=== PATIENT | male | born 1965 | race Caucasian/White ===

== ENCOUNTER 2019-07-21 18:49 | Inpatient (IN) | payer OTHER ==
[2019-07-21] MEDS ORDERED: NA CHLORIDE 0.9% 1,000 ML ONE (19:00)
[2019-07-21 19:13] LABS: Absolute Lymphocytes (CBC) 3.2 K/uL (0.7-4.9); Hematocrit 45.1 % (39.6-49.0); MPV 8.2 fL (7.6-11.3); RBC Red Blood Cell Count 5.33 M/uL (4.33-5.43)
[2019-07-21 19:17] LABS: Protime INR 0.94
[2019-07-21] MEDS ORDERED: ONDANSETRON 4 MG/2 ML VIAL ONE (19:21)
[2019-07-21] MEDS ORDERED: MORPHINE 4 MG/ML SYR ONE ×2 (19:21→20:50)
[2019-07-21 19:32] LABS: ALT/SGPT 20 U/L (12-78); AST/SGOT 15 U/L (15-37); Albumin 3.9 g/dL (3.4-5.0); Alkaline Phosphatase 57 U/L (45-117); BUN Blood Urea Nitrogen 9 mg/dL (7-18); Bicarbonate 28 mmol/L (21-32); Bilirubin Direct 0.1 mg/dL (0-0.2); Bilirubin Total 0.6 mg/dL (0.2-1.0); Glucose Level 171 mg/dL (74-106); NT PRO-BNP 167 pg/mL (<125); Potassium 3.7 mmol/L (3.5-5.1); Protein, Total 7.2 g/dL (6.4-8.2); Sodium Level 140 mmol/L (136-145); Troponin (Emerg Dept Use Only) < 0.02 ng/mL (0.0-0.045)
--- NOTE | 2019-07-21 20:53 | RAD REPORT ---
EXAM DESCRIPTION: RAD - Chest Single View - 07/21/2019 8:10 pm CLINICAL HISTORY: Left-sided chest pain COMPARISON: April 2014 TECHNIQUE: AP portable chest image was obtained 1907 hour . FINDINGS: Lung volumes are low. Interstitial opacification and vascular engorgement are present. Hea rt size is normal. Trachea is midline. No measurable pleural effusion and no pneumothorax. No acute b roel abnormality seen. No acute aortic findings suspected. IMPRESSION: Mild CHF/volume overload pattern accentuated by shallow inspiration.
--- NOTE | 2019-07-21 22:28 | ER ---
Nurse's Notes [facility] Name: Ran Cummings Age: 54 yrs Sex: Male : 1965 Arrival Date: 07/21/2019 Time: 18:50 Bed 27 Private MD: Diagnosis: Acute coronary syndrome Presentation: 07/21 18:52 Presenting complaint: Patient states: chest pain radiating to left side, through to iw back to shoulder blades, started 30 minutes ago after a "stressful event" pain described as sharp, burning, 8/10, worse when taking deep breath or movement, hx of RI X 2. Transition of care: patient was not received from another setting of care. Onset of symptoms was July 21, 2019. Risk Assessment: Do you want to hurt yourself or someone else? Patient reports no desire to harm self or others. Initial Sepsis Screen: Does the patient meet any 2 criteria? No. Patient's initial sepsis screen is negative. Does the patient have a suspected source of infection? No. Patient's initial sepsis screen is negative. 18:52 Method Of Arrival: EMS: [facility] iw 18:52 Acuity: DASHA 2 iw 18:52 Care prior to arrival: Medication(s) given: ASA, 81 mg, x 4. iw Historical: - Allergies: 19:01 No Known Allergies; iw - Home Meds: 19:01 Metoprolol Tartrate Oral once daily [Active]; Plavix 75 mg Oral tab 1 tab once daily iw [Active]; aspirin 81 mg Oral TbEC 1 tab once daily [Active]; Toujeo SoloStar 300 unit/mL (1.5 mL) subcutaneous inpn daily [Active]; Levemir 100 unit/mL subcutaneous soln daily [Active]; - PMHx: 19:01 Myocardial infarction; Diabetes - NIDDM; Hypertension; iw - PSHx: 19:01 Heart stents; Appendectomy; Pilonidal cyst; Removal of benign cyst from eyebrow; CABG; iw aortic valve replacement; - Immunization history:: Adult Immunizations up to date. - Social history:: Smoking status: Patient/guardian denies using tobacco. - Ebola Screening: : Patient negative for fever greater than or equal to 101.5 degrees Fahrenheit, and additional compatible Ebola Virus Disease symptoms Patient denies exposure to infectious person Patient denies travel to an Ebola-affected area in the 21 days before illness onset No symptoms or risks identified at this time. Screenin:08 Abuse screen: Denies threats or abuse. Denies injuries from another. Nutritional rv screening: No deficits noted. Tuberculosis screening: No symptoms or risk factors identified. Fall Risk None identified. Assessment: 19:06 General: Appears in no apparent distress. uncomfortable, Behavior is calm, cooperative. rv Pain: Complains of pain in chest Pain radiates to back Quality of pain is described as burning, stabbing, Pain began suddenly. Neuro: Level of Consciousness is awake, alert, obeys commands, Oriented to person, place, time, situation. Cardiovascular: Rhythm is atrial flutter. Respiratory: Airway is patent. GI: No signs and/or symptoms were reported involving the gastrointestinal system. : No signs and/or symptoms were reported regarding the genitourinary system. EENT: No signs and/or symptoms were reported regarding the EENT system. Derm: Skin is intact. Musculoskeletal: No signs and/or symptoms reported regarding the musculoskeletal system. Vital Signs: 19:01 BP 174 / 100; Pulse 85; Resp 18 S; Temp 97.6; Pulse Ox 98% on R/A; Weight 102.97 kg; iw Height 5 ft. 9 in. (175.26 cm); Pain 8/10; 20:00 BP 123 / 78; Pulse 79; Resp 17; Pulse Ox 97% on R/A; rv 20:12 Pain 4/10; rv 21:00 BP 135 / 83; Pulse 80; Resp 16; Pulse Ox 97% on R/A; rv 22:00 BP 106 / 59; Pulse 67; Resp 16; Pulse Ox 97% on R/A; rv 23:00 BP 128 / 67; Pulse 67; Resp 15; Pulse Ox 97% on R/A; rv 19:01 Body Mass Index 33.52 (102.97 kg, 175.26 cm) iw ED Course: 18:50 Patient arrived in ED. rv 18:54 Triage completed. iw 18:55 Damon Haywood, RN is Primary Nurse. rv 19:01 Arm band placed on. iw 19:06 Inserted saline lock: 20 gauge in right antecubital area, using aseptic technique. rv Blood collected. Patient maintains SpO2 saturation greater than 95% on room air. 19:07 Patient has correct armband on for positive identification. Bed in low position. Call rv light in reach. Side rails up X 1. environmental monitoring specialist on. Pulse ox on. NIBP on. 19:14 Ashkan Haramn MD is Attending Physician. kdr 22:25 Betsy Livingston MD is Hospitalizing Provider. kdr 23:47 No provider procedures requiring assistance completed. Patient admitted, IV remains in rv place. Administered Medications: 19:40 Drug: morphine 4 mg {Note: rass 0.} Route: IVP; Site: right antecubital; rv 20:12 Follow up: Pain 4/10 Adult; Response: No adverse reaction; Marked relief of symptoms; rv Pain is decreased; RASS: Alert and Calm (0) 19:40 Drug: Zofran 4 mg Route: IVP; Site: right antecubital; rv 20:12 Follow up: Response: No adverse reaction rv 20:58 Drug: morphine 4 mg {Note: rass 0.} Route: IVP; Site: right antecubital; rv 22:40 Follow up: Response: No adverse reaction; Marked relief of symptoms; Pain is decreased; rv RASS: Alert and Calm (0) 23:01 Drug: morphine 4 mg Route: IVP; Site: right antecubital; rv 23:47 Follow up: Response: Medication administered at discharge. rv 23:26 Not Given (patient is already taken in the floor): Lasix 40 mg IVP once rv Outcome: 22:27 Decision to Hospitalize by Provider. kdr 23:47 Condition: good rv 23:48 Admitted to Med/surg accompanied by tech, via wheelchair, room 211, with chart, Report rv called to robert rn 23:48 Instructed on the need for admit. 23:55 Patient left the ED. rv Signatures: Ashkan Harman MD MD kdr Radha Dawson RN RN iw Damon Haywood RN RN rv Corrections: (The following items were deleted from the chart) 18:54 18:52 Care prior to arrival: None. iw iw 23:48 23:47 IV discontinued, intact, bleeding controlled, No redness/swelling at site. rv Pressure dressing applied, rv
--- NOTE | 2019-07-21 22:28 | EDPHYS ---
Physician Documentation [facility] Name: Ran Cummings Age: 54 yrs Sex: Male : 1965 Arrival Date: 07/21/2019 Time: 18:50 Bed 27 Private MD: ED Physician Ashkan Harman HPI: 07/21 19:47 This 54 yrs old Male presents to ER via EMS with complaints of Chest Pain. kdr 19:47 The patient or guardian reports chest pain that is located primarily in the substernal kdr area, anterior chest wall. Onset: suddenly, just prior to arrival, .75 hour(s) ago. The pain radiates to the left arm, back. Associated signs and symptoms: Pertinent positives: dizziness, lightheadedness, shortness of breath, Pertinent negatives: abdominal pain, cough, diaphoresis, vomiting. The chest pain is described as aching, sharp, stabbing. Duration: The patient or guardian reports a single episode, that is still ongoing, but improving. Modifying factors: The symptoms are alleviated by narcotic pain medication, Morphine. the symptoms are aggravated by breathing, cough, deep breath. Severity of pain: At its worst the pain was a 8 / 10 in the emergency department the pain is a 4 / 10 After receiving morphine. The patient has experienced similar episodes in the past, today's symptoms are similar, and the symptoms today are exactly the same. The patient has not recently seen a physician. Historical: - Allergies: 19:01 No Known Allergies; iw - Home Meds: 19:01 Metoprolol Tartrate Oral once daily [Active]; Plavix 75 mg Oral tab 1 tab once daily iw [Active]; aspirin 81 mg Oral TbEC 1 tab once daily [Active]; Toujeo SoloStar 300 unit/mL (1.5 mL) subcutaneous inpn daily [Active]; Levemir 100 unit/mL subcutaneous soln daily [Active]; - PMHx: 19:01 Myocardial infarction; Diabetes - NIDDM; Hypertension; iw - PSHx: 19:01 Heart stents; Appendectomy; Pilonidal cyst; Removal of benign cyst from eyebrow; CABG; iw aortic valve replacement; - Immunization history:: Adult Immunizations up to date. - Social history:: Smoking status: Patient/guardian denies using tobacco. - Ebola Screening: : Patient negative for fever greater than or equal to 101.5 degrees Fahrenheit, and additional compatible Ebola Virus Disease symptoms Patient denies exposure to infectious person Patient denies travel to an Ebola-affected area in the 21 days before illness onset No symptoms or risks identified at this time. ROS: 19:47 Constitutional: Negative for fever, chills, and weight loss, Eyes: Negative for injury, kdr pain, redness, and discharge, Neck: Negative for injury, pain, and swelling, Respiratory: Negative for shortness of breath, cough, wheezing, and pleuritic chest pain, Abdomen/GI: Negative for abdominal pain, nausea, vomiting, diarrhea, and constipation, Back: Negative for injury and pain, MS/Extremity: Negative for injury and deformity, Skin: Negative for injury, rash, and discoloration, Neuro: Negative for headache, weakness, numbness, tingling, and seizure activity. Psych: Negative for depression, anxiety, suicide ideation, homicidal ideation, and hallucinations, Allergy/Immunology: Negative for hives, rash, and allergies, Endocrine: Negative for neck swelling, polydipsia, polyuria, polyphagia, and marked weight changes, Hematologic/Lymphatic: Negative for swollen nodes, abnormal bleeding, and unusual bruising. 19:47 Cardiovascular: Positive for chest pain, Negative for chest pain. Exam: 19:47 Constitutional: This is a well developed, well nourished patient who is awake, alert, kdr and in no acute distress. Head/Face: Normocephalic, atraumatic. Eyes: Pupils equal round and reactive to light, extra-ocular motions intact. Lids and lashes normal. Conjunctiva and sclera are non-icteric and not injected. Cornea within normal limits. Periorbital areas with no swelling, redness, or edema. Neck: Trachea midline, no thyromegaly or masses palpated, and no cervical lymphadenopathy. Supple, full range of motion without nuchal rigidity, or vertebral point tenderness. No Meningismus. Chest/axilla: Normal chest wall appearance and motion. Nontender with no deformity. No lesions are appreciated. Cardiovascular: Regular rate and rhythm with a normal S1 and S2. No gallops, murmurs, or rubs. Normal PMI, no JVD. No pulse deficits. Respiratory: Lungs have equal breath sounds bilaterally, clear to auscultation and percussion. No rales, rhonchi or wheezes noted. No increased work of breathing, no retractions or nasal flaring. Abdomen/GI: Soft, non-tender, with normal bowel sounds. No distension or tympany. No guarding or rebound. No evidence of tenderness throughout. Back: No spinal tenderness. No costovertebral tenderness. Full range of motion. Skin: Warm, dry with normal turgor. Normal color with no rashes, no lesions, and no evidence of cellulitis. MS/ Extremity: Pulses equal, no cyanosis. Neurovascular intact. Full, normal range of motion. Neuro: Awake and alert, GCS 15, oriented to person, place, time, and situation. Cranial nerves II-XII grossly intact. Motor strength 5/5 in all extremities. Sensory grossly intact. Cerebellar exam normal. Normal gait. Psych: Awake, alert, with orientation to person, place and time. Behavior, mood, and affect are within normal limits. Vital Signs: 19:01 BP 174 / 100; Pulse 85; Resp 18 S; Temp 97.6; Pulse Ox 98% on R/A; Weight 102.97 kg; iw Height 5 ft. 9 in. (175.26 cm); Pain 8/10; 20:00 BP 123 / 78; Pulse 79; Resp 17; Pulse Ox 97% on R/A; rv 20:12 Pain 4/10; rv 21:00 BP 135 / 83; Pulse 80; Resp 16; Pulse Ox 97% on R/A; rv 22:00 BP 106 / 59; Pulse 67; Resp 16; Pulse Ox 97% on R/A; rv 23:00 BP 128 / 67; Pulse 67; Resp 15; Pulse Ox 97% on R/A; rv 19:01 Body Mass Index 33.52 (102.97 kg, 175.26 cm) iw MDM: 19:47 HEART Score: History: Highly Suspicious (2), ECG: Non specific repolarization kdr disturbance / LBTB / PM (1), Age: > 45 and < 65 years (1), Risk Factors: > or = 3 Risk factors for atherosclerotic disease (2), Troponin:. Data reviewed: vital signs. 22:27 Patient medically screened. kdr 07/21 18:56 Order name: Basic Metabolic Panel rv 07/21 18:56 Order name: CBC with Diff rv 07/21 18:56 Order name: LFT's rv 07/21 18:56 Order name: Magnesium rv 07/21 18:56 Order name: NT PRO-BNP rv 07/21 18:56 Order name: PT-INR rv 07/21 18:56 Order name: Troponin (emerg Dept Use Only) rv 07/21 19:14 Order name: Glucose, Ancillary Testing; Complete Time: 20:45 EDMS 07/21 19:14 Order name: CBC with Automated Diff; Complete Time: 20:45 EDMS 07/21 19:17 Order name: Protime (+INR); Complete Time: 20:45 EDMS 07/21 19:32 Order name: Basic Metabolic Panel; Complete Time: 20:45 EDMS 07/21 19:32 Order name: Liver (Hepatic) Function; Complete Time: 20:45 EDMS 07/21 19:32 Order name: Troponin (Emerg Dept Use Only); Complete Time: 20:45 EDMS 07/21 19:32 Order name: NT PRO-BNP; Complete Time: 20:45 EDMS 07/21 18:56 Order name: XRAY Chest (1 view) rv 07/21 18:56 Order name: EKG; Complete Time: 18:57 rv 07/21 19:32 Order name: Magnesium; Complete Time: 20:45 EDMS 07/21 21:33 Order name: RAD; Complete Time: 22:11 EDMS 07/21 22:41 Order name: Echo with Doppler EDMS 07/21 22:41 Order name: Lipid Profile EDND 07/21 22:41 Order name: Lipid Profile EDND 07/21 22:41 Order name: Troponin I EDND 07/21 22:41 Order name: Troponin I EDND 07/21 22:41 Order name: Troponin I EDND 07/21 23:38 Order name: Glucose, Ancillary Testing EDMS 07/21 18:56 Order name: Cardiac monitoring; Complete Time: 19:06 rv 07/21 18:56 Order name: EKG - Nurse/Tech; Complete Time: 19:06 rv 07/21 18:56 Order name: IV Saline Lock; Complete Time: 19:06 rv 07/21 18:56 Order name: Labs collected and sent; Complete Time: 19:06 rv 07/21 18:56 Order name: O2 Per Protocol; Complete Time: 19:06 rv 07/21 18:56 Order name: O2 Sat Monitoring; Complete Time: 19:06 rv 07/21 22:41 Order name: CONS Physician Consult EDMS 07/21 22:41 Order name: Heart Healthy EDMS 07/21 22:41 Order name: EKG Electrocardiogram EDMS 07/21 22:41 Order name: EKG Electrocardiogram EDMS Administered Medications: 19:40 Drug: morphine 4 mg {Note: rass 0.} Route: IVP; Site: right antecubital; rv 20:12 Follow up: Pain 4/10 Adult; Response: No adverse reaction; Marked relief of symptoms; rv Pain is decreased; RASS: Alert and Calm (0) 19:40 Drug: Zofran 4 mg Route: IVP; Site: right antecubital; rv 20:12 Follow up: Response: No adverse reaction rv 20:58 Drug: morphine 4 mg {Note: rass 0.} Route: IVP; Site: right antecubital; rv 22:40 Follow up: Response: No adverse reaction; Marked relief of symptoms; Pain is decreased; rv RASS: Alert and Calm (0) 23:01 Drug: morphine 4 mg Route: IVP; Site: right antecubital; rv 23:47 Follow up: Response: Medication administered at discharge. rv 23:26 Not Given (patient is already taken in the floor): Lasix 40 mg IVP once rv Disposition: 07/21/19 22:27 Hospitalization ordered by Betsy Livingston for Observation. Preliminary diagnosis is Acute coronary syndrome. - Bed requested for Telemetry/MedSurg (observation). - Status is Observation. rv - Condition is Fair. - Problem is an acute exacerbation. - Symptoms have improved. UTI on Admission? No Signatures: Dispatcher [employer] EDND Cira Galicia RN RN Ashkan Harman MD MD kdr Williams, Irene, RN RN iw Damon Haywood RN RN rv Corrections: (The following items were deleted from the chart) 22:42 22:27 Hospitalization Ordered by Betsy Livingston MD for Observation. Preliminary diagnosis is Acute coronary syndrome. Bed requested for Telemetry/MedSurg (observation). Status is Observation. Condition is Fair. Problem is an acute exacerbation. Symptoms have improved. UTI on Admission? No. kdr 23:55 22:42 07/21/2019 22:27 Hospitalization Ordered by Betsy Livingston MD for Observation. rv Preliminary diagnosis is Acute coronary syndrome. Bed requested for Telemetry/MedSurg (observation). Status is Observation. Condition is Fair. Problem is an acute exacerbation. Symptoms have improved. UTI on Admission? No. mw
[2019-07-21] MEDS ORDERED: MORPHINE 4 MG/ML SYR IV PRN (22:38)
[2019-07-21] MEDS ORDERED: ACETAMINOPHEN 500 MG TAB PO PRN (22:38)
[2019-07-22 00:18] VITALS: BMI 34.8
[2019-07-22] MEDS ORDERED: INFLUENZA VACCINE (for 3y+) 0.5 ML DOSE IMVAC ONE (00:28)
[2019-07-22] MEDS ORDERED: PNEUMOCOCCAL VACCINE 0.5 ML IMVAC ONE (00:28)
[2019-07-22 00:36] VITALS: O2SAT 97
[2019-07-22 03:25] LABS: Urine Appearance CLEAR; Urine Bilirubin NEGATIVE (NEG); Urine Blood NEGATIVE (NEG); Urine Color YELLOW; Urine Glucose NEGATIVE (NEG); Urine Protein TRACE (NEG); Urine Specific Gravity 1.015 (1.005-1.030); Urine Urobilinogen 0.2 mg/dL (0.2-1.0); Urine pH 5.5 (5.0-7.0)
[2019-07-22 03:35] LABS: Urine Microscopic Reflex ORDER UMIC
[2019-07-22 03:57] LABS: Urine Bacteria <20 /HPF (NONE SEEN); Urine Culture Reflex Order NOT NEEDED; Urine RBC <5 /HPF (NONE SEEN)
[2019-07-22 06:35] LABS: HDL Cholesterol 45 mg/dL (40-60); LDL Cholesterol, Calculated 114 (<130); Troponin I < 0.02 ng/mL (0.0-0.045)
--- NOTE | 2019-07-22 07:07 | P.HP ---
Certification for Inpatient Patient admitted to: Observation With expected LOS: <2 Midnights Patient will require the following post-hospital care: None Practitioner: I am a practitioner with admitting privileges, knowledge of patient current condition, hospital course, and medical plan of care. Services: Services provided to patient in accordance with Admission requirements found in Title 42 Section 412.3 of the Code of Federal Regulations Patient History Date of Service: 07/21/19 Reason for admission: Chest pain rule out acute coronary syndrome History of Present Illness: Patient is a 54-year-old gentleman who came into the hospital with chest discomfort. Pain was mainly in the sternal region. He has been coughing quite a bit lately because of his COPD. He has been having coughing & congestion. Patient has had a history of coronary artery disease, and he had a CABG performed in 2013. He had done well since that time has he stopped smoking, and he has been taking his medications regularly. He has had some chest discomfort with the last time happening in August 2018. He had chest pain which radiated to his left arm, and his arm became completely numb. He was supposed to get further testing, but he never followed up. He was working in the [employer] recently. But because of his heart disease he got disability, and he has retired since that time. He started having chest pain yesterday. Initially, he thought it was reflux. The chest pain would not go away, so he came to the hospital for further evaluation. Allergies gabapentin [From Neurontin] Allergy (Intermediate, Verified 07/21/19 23:26) redness Home Medications: Albuterol Sulfate [Proventil Hfa] 2 puff IH Q6HP PRN 04/23/14 Aspirin [Low Dose Aspirin EC] 81 mg PO DAILY 04/23/14 Nitroglycerin [Nitrostat*] 1 tab SL PRN PRN 04/23/14 Hydrocodone Bit/Acetaminophen [Hydrocodon-Acetaminophn 10-325] 1 tab PO TID PRN #90 tablet 04/24/14 Metoprolol Tartrate [Lopressor*] 50 mg PO BID #60 tab 04/24/14 Atorvastatin Calcium [Lipitor] 1 tab PO DAILY 07/21/19 Clopidogrel Bisulfate [Plavix*] 1 tab PO DAILY 07/21/19 Insulin Detemir [Levemir] 70 units SQ SEECOM 07/21/19 Insulin Glargine,Hum.rec.anlog [Toujeo Solostar] 30 units SQ SEECOM 07/21/19 Umeclidinium Brm/Vilanterol Tr [Anoro Ellipta 62.5-25 Mcg INH] 1 puff IH DAILY 07/21/19 clonazePAM [Klonopin*] 0.25 mg PO BID 07/21/19 Exenatide Microspheres [Bydureon Pen] 2 mg SQ SEECOM 07/22/19 - Past Medical/Surgical History Has patient received pneumonia vaccine in the past: Yes Diabetic: Yes -: CHF -: HTN -: CAD, 3 stents placed in 2011, Cardiology-Dr Pritchard -: DM Neuropathy -: COPD -: History of Tobacco abuse, Quit in 2012 -: Hyperlipidemia -: Cyst removal to face -: Appendectomy -: Coronary artery stent placement -: quadruple bypass 2013 -: Valve replacement 2013 Psychosocial/ Personal History: -27 years, Children-4, 6 grandkids, Retired box truck washer. - Family History Mother Medical History: Heart disease, Diabetes, Other (see notes) Notes: Heart failure - Social History Smoking Status: Former smoker Alcohol use: No CD- Drugs: No Caffeine use: Yes Place of Residence: Home Review of Systems 10-point ROS is otherwise unremarkable Physical Examination - Vital Signs Temperature: 97.0 F Blood Pressure: 113/63 Pulse: 73 Respirations: 18 Pulse Ox (%): 96 - Physical Exam General: Alert, In no apparent distress, Oriented x3 HEENT: Atraumatic, PERRLA, Mucous membr. moist/pink, EOMI, Sclerae nonicteric Neck: Supple, 2+ carotid pulse no bruit, No LAD, Without JVD or thyroid abnormality Respiratory: Clear to auscultation bilaterally, Normal air movement Cardiovascular: Regular rate/rhythm, Normal S1 S2, No murmurs Gastrointestinal: Normal bowel sounds, Soft and benign, Non-distended, No tenderness Musculoskeletal: No clubbing, No swelling, No tenderness Integumentary: No rashes Neurological: Normal gait, Normal speech, Normal strength at 5/5 x4 extr, Normal tone, Sensation intact, Cranial nerves 3-12 intact, Normal affect Lymphatics: No axilla or inguinal lymphadenopathy - Studies Laboratory Data (last 24 hrs) 07/21/19 19:00: PT 11.1, INR 0.94 07/21/19 19:00: WBC 8.7, Hgb 15.6, Hct 45.1, Plt Count 178 07/21/19 19:00: Sodium 140, Potassium 3.7, BUN 9, Creatinine 1.14, Glucose 171 H , Magnesium 2.0, Total Bilirubin 0.6, AST 15, ALT 20, Alkaline Phosphatase 57 Assessment & Plan - Problems (Diagnosis) (1) Chest pain, rule out acute myocardial infarction Current Visit: Yes Status: Acute (2) CAD (coronary artery disease) Current Visit: No Status: Chronic Qualifiers: Coronary Disease-Associated Artery/Lesion type: bypass graft (3) COPD (chronic obstructive pulmonary disease) Current Visit: No Status: Chronic Qualifiers: COPD type: chronic bronchitis (4) Depression with anxiety Current Visit: No Status: Chronic (5) Family history of acute congestive heart failure Current Visit: No Status: Chronic (6) History of tobacco use Current Visit: No Status: Chronic (7) Hyperlipidemia Current Visit: No Status: Chronic (8) Hypertension Current Visit: No Status: Chronic (9) Type II diabetes mellitus, uncontrolled Current Visit: No Status: Chronic - Plan 1. Serial troponins and EKG 2. Cardiology consultation 3. Echocardiogram and will discuss with Cardiology regarding stress test Tuesday AM 4. Anti-platelet therapy, anticoagulation, beta-alexandrea, and statin. Nitro and O2 as needed 5. IV morphine for pain 6. Strict blood pressure and blood sugar control 7. Will try to control his COPD as he is having frequent coughing and congestion 8. GI and DVT prophylaxis Discharge Plan: Home Plan to discharge in: 48 Hours - Advance Directives Does patient have a Living Will: Yes Does patient have a Durable POA for Healthcare: Yes - Code Status/Comfort Care Code Status Assessed: Yes Code Status: Full Code Critical Care: No Time Spent Managing PTS Care (In Minutes): 45
[2019-07-22] MEDS ORDERED: ALBUTEROL INHALER 60 PUFF/8 GM IH PRN (07:10)
[2019-07-22] MEDS ORDERED: NITROGLYCERIN 0.4 MG/TAB SL PRN (07:10)
[2019-07-22] MEDS ORDERED: HYDROCODONE/APAP 10/325 TAB PO PRN (07:10)
[2019-07-22] MEDS ORDERED: EXENATIDE MICROSPHERES 2 MG SQ SCH (07:15)
[2019-07-22] MEDS ORDERED: INSULIN GLARGINE HUM REC ANLOG 30 UNIT SQ SCH (07:15)
[2019-07-22] MEDS: INSULIN DETEMIR 70 UNIT SQ SCH (08:13)
[2019-07-22] MEDS: ASPIRIN EC 81 MG TAB PO SCH (08:16)
[2019-07-22] MEDS: CLOPIDOGREL 75 MG TABLET PO SCH (08:17)
[2019-07-22] MEDS: METOPROLOL TAR 50 MG TAB PO SCH ×2 (08:17→20:39)
[2019-07-22] MEDS: HYDROMORPHONE HCL 0.5 MG/0.5 ML INJ IV PRN ×3 (08:18→17:34)
[2019-07-22] MEDS: ATORVASTATIN 40 MG TAB PO SCH (08:30)
[2019-07-22] MEDS: clonazePAM 0.5 MG TAB PO SCH ×2 (08:31→20:39)
[2019-07-22] MEDS ORDERED: METOPROLOL TAR 50 MG TAB PO SCH (09:00)
[2019-07-22] MEDS ORDERED: HOME MED 1 EA UNK (Umeclidinium Brm/Vilanterol Tr [Anoro Ellipta 62.5-25 Mcg Inh] 1 PUFF) IH SCH (09:00)
[2019-07-22] MEDS ORDERED: CLONAZEPAM 0.5 MG PO SCH (09:00)
[2019-07-22] MEDS ORDERED: ENOXAPARIN 40 MG/0.4 ML SQ SCH (09:00)
--- NOTE | 2019-07-22 10:41 | P.PN ---
Subjective Date of Service: 07/22/19 Chief Complaint: Chest pain rule out acute coronary syndrome Subjective: Improving (Patient is doing better he was having some chest pain on moderate to severe exertion for the past 4 days significant history of coronary artery disease no pain right now) Review of Systems Unremarkable Physical Examination - Vital Signs Temperature: 97.8 F Blood Pressure: 113/63 Pulse: 73 Respirations: 17 Pulse Ox (%): 92 - Physical Exam General: Alert, In no apparent distress, Oriented x3 Neck: Supple Respiratory: Clear to auscultation bilaterally Cardiovascular: No edema, Regular rate/rhythm, Normal S1 S2 - Studies Laboratory Data (last 24 hrs) 07/21/19 19:00: PT 11.1, INR 0.94 07/21/19 19:00: WBC 8.7, Hgb 15.6, Hct 45.1, Plt Count 178 07/21/19 19:00: Sodium 140, Potassium 3.7, BUN 9, Creatinine 1.14, Glucose 171 H , Magnesium 2.0, Total Bilirubin 0.6, AST 15, ALT 20, Alkaline Phosphatase 57 Assessment & Plan - Problems (Diagnosis) (1) Chest pain, rule out acute myocardial infarction Current Visit: Yes Status: Acute Plan: Patient is 54 years of age with a significant history of coronary artery disease and COPD admitted with unstable angina no evidence of acute myocardial damage labs reviewed he has a history of COPD uses Anoro. Abating cardiology Consult probably going to need a cardiac catheterization I have increased the dose of Lovenox add Dulera
[2019-07-22] MEDS ORDERED: Enoxaparin 120 MG/0.8 ML SYR SQ SCH (12:00)
--- NOTE | 2019-07-22 12:45 | EKG ---
Test Date: 2019-07-21 Test Time: 18:48:54 Dental Associate: YSABELT MEASUREMENT RESULTS: Intervals: Rate: 90 MA: 134 QRSD: 98 QT: 376 QTc: 459 [place]: P: 32 MA: 134 QRS: -43 T: 39 INTERPRETIVE STATEMENTS: Normal sinus rhythm Left axis deviation Nonspecific ST abnormality Abnormal ECG Compared to ECG 05/02/2014 13:56:50 Left-axis deviation now present ST (T wave) deviation now present Sinus tachycardia no longer present Electronically Signed On 07-22-19 12:44:30 SURG TECH by Davion Trejo
--- NOTE | 2019-07-22 12:45 | EKG ---
Test Date: 2019-07-21 Test Time: 18:57:38 Trimmer Climber: LMT MEASUREMENT RESULTS: Intervals: Rate: 84 SD: QRSD: 96 QT: 378 QTc: 446 [place]: P: 39 SD: QRS: -32 T: 27 INTERPRETIVE STATEMENTS: normal sinus rhythm...artifact Left axis deviation Abnormal ECG Compared to ECG 07/21/2019 18:48:54 no chg Electronically Signed On 07-22-19 12:44:29 INFORMATION STRATEGIST by Davion Trejo
[2019-07-22] MEDS: DULERA 200/5 (MOMETASONE/FORMOTEROL) INHALER IH SCH ×2 (13:06→20:42)
[2019-07-22] MEDS: ALPRAZOLAM 0.25 MG TABLET PO PRN ×2 (13:07→19:04)
[2019-07-22] MEDS: Enoxaparin 120 MG/0.8 ML SYR SQ SCH (20:39)
--- NOTE | 2019-07-22 20:53 | P.PN ---
Subjective Date of Service: 07/22/19 Chief Complaint: Chest pain rule out acute coronary syndrome Physical Examination - Vital Signs Temperature: 97.7 F Blood Pressure: 113/58 Pulse: 66 Respirations: 18 Pulse Ox (%): 95 - Studies Laboratory Data (last 24 hrs) 07/22/19 05:52: Troponin I < 0.02, Triglycerides 115, Cholesterol 182, HDL Cholesterol 45, Cholesterol/HDL Ratio 4.04 Assessment & Plan Physician Review Additional Text: Impression: Chest pain with history of CAD/CABG/Stents HTN Hyperlipidemia DM Type 2 insulin dependent with Hyperglycemia COPD GERD Depression with Anxiety Former tobacco use
--- NOTE | 2019-07-23 00:30 | CON ---
Date of Consultation: 07/22/2019 He was admitted by Dr. Hodges. Reason For Consultation: Chest pain and syncope. History Of Present Illness: Mr. Cummings is a 54-year-old white male. He is a patient of Dr. Francheska santana. Has had coronary artery bypass surgery and valve replacement in August 2014. Has been h aving regular followup with Dr. Pritchard. He was dizzy, lightheaded, sat down to rest and after he wo ke up, he passed out. After he awoke, he had some substernal chest pain. No radiation. No nausea, vomiting, diaphoresis, PND, orthopnea, pedal edema, or palpitations. By the time I saw him, he has a lready ruled out for an OK. Past Medical History: Include coronary artery disease status post CABG, valvular heart disease statu s post AVR, dyslipidemia, anxiety. Allergies: NEURONTIN. Review of Systems: Negative. Social History: Negative. Family History: Noncontributory. Medications At Home: Include inhalers, aspirin, Plavix, Lipitor, insulin, metoprolol, and Klonopin. Physical Examination: Vital Signs: He weighed 235 pounds, anxious, but no acute distress, was not in pain. He was in norm al rhythm. HEENT: Negative. Neck: Supple. No bruit. Chest: Clear. Cardiac: Revealed a regular rhythm and rate. No murmurs, gallops, or rubs. Abdomen: Benign. Extremities: Revealed no clubbing, cyanosis, or edema. Neurological: He was nonfocal. Pulses were present distally bilaterally. Skin: Dry and intact. Impression: 1.Syncope, probably orthostatic in nature. 2.Atypical chest pain, probably gastroesophageal. 3.Diabetes. 4.Hypertension. 5.Dyslipidemia. 6.Coronary artery disease, status post coronary artery bypass graft. 7.Valvular heart disease, status post aortic valve replacement. Plan: I think Mr. Cummings deserve to have an echocardiogram and a Lexiscan to evaluate his coronary a natomy and his valvular heart status. I do not think his syncope was cardiac. I think he was orthos tatic. We will continue his present regimen for now. We will see what the echo and Lexiscan shows p rior to making final decisions. MELISSA/JORGE L Voice ID: [id number] Report ID: [id number]
[2019-07-23] MEDS: HYDROMORPHONE HCL 0.5 MG/0.5 ML INJ IV PRN ×3 (01:59→10:08)
[2019-07-23] MEDS ORDERED: REGADENOSON 0.4 MG/5 ML SYR IV ONE (08:10)
[2019-07-23] MEDS: INSULIN DETEMIR 70 UNIT SQ SCH (09:00)
[2019-07-23] MEDS: Enoxaparin 120 MG/0.8 ML SYR SQ SCH (09:00)
--- NOTE | 2019-07-23 09:40 | TREADPHA ---
DX: CHEST PAIN, CORONARY ARTERY DISEASE Date of Study: 07/23/2019 Ht: 5 9 Wt: 235 lb 11.2 oz Consulting Physician: FRIDA MEDICATIONS: TYLENOL, NORCO, XANAX, ASPIRIN, LIPITOR, PLAVIX, KLONOPIN, LOPRESSOR, LEVRMOR HISTORY: HYPERTENSION, HIGH CHOLESTEROL, ANXIETY, QUADRUPLE BYPASS, CHRONIC PAIN, INSULIN DEPENDENT DIABETES MELLITUS. PHYSICIAL EXAMINATION: RESTING B.P.: 122/71 RESTING H.R.: 72 RESTING EKG: SINUS, NON SPECIFIC T WAVE FLATTENING PROTOCOL: LEXISCAN EXERCISE TIME: 3:30 B.P. AT PEAK STRESS: 156/79 IMPRESSION: LEXISCAN STRESS TEST PERFORMED. CARDIOLITE INJECTED PER PROTOCOL. NO SUPRAVENTRICULAR TACHYCARDIA, VENTRICULAR TACHYCARDIA OR ARRYTHMIAS NOTED. PATIENT DEINED CHEST PAIN. TOLERATED WELL. SEE NUCLEAR MEDICINE REPORT. NON DIAGNOSTIC EKG WITH LEXISCAN STRESS.
--- NOTE | 2019-07-23 09:54 | RAD REPORT ---
EXAM DESCRIPTION: NM - Rest Stress Cardiac Imaging - 07/23/2019 9:45 am CLINICAL HISTORY: CP Chest pain. COMPARISON: No comparisons TECHNIQUE: The patient was administered approximately 10mCi of Tc 99m Sestamibi prior to resting SPE CT imaging of the heart. The patient was then administered approximately 30 mCi of Tc 99m Sestamibi f ollowing exercise or pharmacologic stress. Multiplanar SPECT images were reviewed. FINDINGS: Moderate sized area of stress-induced ischemia is suspected involving the left ventricular apex extending into the inferior wall. No fixed defect is seen to suggest hibernating myocardium or scarred myocardium. The end diastolic volume is 168 ml, the end systolic volume is 106 ml, and the ejection fraction is 3 7 %. IMPRESSION: Moderate stress-induced ischemia involving the left ventricular apex extending into the inferior wall.
[2019-07-23] MEDS: ASPIRIN EC 81 MG TAB PO SCH (10:02)
[2019-07-23] MEDS: METOPROLOL TAR 50 MG TAB PO SCH (10:02)
[2019-07-23] MEDS: clonazePAM 0.5 MG TAB PO SCH (10:03)
[2019-07-23] MEDS: ATORVASTATIN 40 MG TAB PO SCH (10:03)
[2019-07-23] MEDS: CLOPIDOGREL 75 MG TABLET PO SCH (10:04)
[2019-07-23] MEDS: DULERA 200/5 (MOMETASONE/FORMOTEROL) INHALER IH SCH (10:06)
--- NOTE | 2019-07-23 11:48 | P.PN ---
Subjective Date of Service: 07/23/19 Primary Care Provider: Dr. Refugio Rodriguez Chief Complaint: Chest pain rule out acute coronary syndrome Subjective: Doing well Physical Examination - Vital Signs Temperature: 97.3 F Blood Pressure: 118/64 Pulse: 72 Respirations: 18 Pulse Ox (%): 98 - Physical Exam General: Alert, In no apparent distress, Oriented x3, Cooperative HEENT: Atraumatic Neck: Supple Respiratory: Clear to auscultation bilaterally, Normal air movement Cardiovascular: Normal pulses, Regular rate/rhythm Gastrointestinal: Normal bowel sounds, Soft and benign, Non-distended, No masses , No rebound, No guarding Musculoskeletal: No tenderness, No warmth Neurological: Normal speech, Normal strength at 5/5 x4 extr, Normal tone, Normal affect - Studies Medications List Reviewed: Yes Assessment & Plan Discharge Plan: Home Plan to discharge in: Greater than 2 days Physician Review Additional Text: Impression: Chest pain with history of CAD/CABG/Stents HTN Hyperlipidemia DM Type 2 insulin dependent with Hyperglycemia COPD GERD Depression with Anxiety Former tobacco use Plan: Chest pain with history of CAD/CABG/Stents: Patient had cardiac stress test showing moderate stress-induced ischemia involving the left ventricular apex extending into the inferior wall. Case discussed with cardiology. Patient will remain in the hospital. Heart catheterization planned for tomorrow. Will keep the patient NPO after midnight in preparation for heart catheterization. Will continue to monitor closely. Continue with current medication at this time. Patient remains on aspirin, Plavix. Patient on Lovenox at 1 milligram/ kilogram subcu twice daily. Continue with beta-alexandrea and statin medication. I will turn the service over to Dr. Rodriguez tomorrow. I will go over the plan of care with her. HTN: Continue metoprolol 50 mg 1 pill twice daily. Blood pressure controlled Hyperlipidemia: Continue with Lipitor. DM Type 2 insulin dependent with Hyperglycemia: Continue with insulin therapy. Accuchecks in place with sliding scale. COPD: Continue with COPD medication. GERD: Continue with medication. Depression with Anxiety: Will provide medication. Former tobacco use: Continue with tobacco cessation education. Time Spent Managing Pts Care (In Minutes): 55
[2019-07-23] MEDS ORDERED: GLUCAGON 1 MG/VIAL IM PRN (11:51)
[2019-07-23] MEDS ORDERED: D50W 25 GM/50 ML SYRINGE/VIAL IV PRN (11:51)
--- NOTE | 2019-07-23 11:53 | ECHO ---
HEIGHT: 5 ft 9 in WEIGHT: 235 lb 11.2 oz DATE OF STUDY: 07/23/[address]: Betsy Livingston MD 2-DIMENSIONAL: YES M.MODE: YES DOPPLER: YES COLOR FLOW: YES TDS: NO PORTABLE: NO DEFINITY: NO BUBBLE STUDY: NO DIAGNOSIS: CORONARY ARTERY DISEASE CARDIAC HISTORY: CATHERIZATION: NO SURGERY: YES PROSTHETIC VALVE: NO PACEMAKER: NO MEASUREMENTS (cm) DIASTOLIC (NORMALS) SYSTOLIC (NORMALS) IVSd 1.2 (0.6-1.2) LA Diam 3.9 (1.9-4.0) LVEF 47% LVIDd 5.0 (3.5-5.7) LVIDs 3.8 (2.0-3.5) %FS 23% LVPWd 1.2 (0.6-1.2) Ao Diam 2.9 (2.0-3.7) 2 DIMENSIONAL ASSESSMENT: RIGHT ATRIUM: NORMAL LEFT ATRIUM: NORMAL RIGHT VENTRICLE: NORMAL LEFT VENTRICLE: NORMAL TRICUSPID VALVE: NORMAL MITRAL VALVE: NORMAL PULMONIC VALVE: NORMAL AORTIC VALVE: NORMAL PERICARDIAL EFFUSION: NONE AORTIC ROOT: NORMAL LEFT VENTRICULAR WALL MOTION: NORMAL DOPPLER/COLOR FLOW: NORMAL COMMENTS: NORMAL 2D ECHOCARDIOGRAM WITH DOPPLER. TECHNOLOGIST: Clinton DELVALLE
--- NOTE | 2019-07-23 12:27 | P.DS ---
Admission Date: 07/22/19 Discharge Date: 07/23/19 Primary Care Provider: Dr. Refugio Rodriguez Disposition: ROUTINE DISCHARGE Discharge Condition: GOOD Reason for Admission: Chest pain rule out acute coronary syndrome Consultations: Cardiology-Dr. Zapata Procedures: ECHO: EF 47% LEFT VENTRICULAR WALL MOTION: NORMAL DOPPLER/COLOR FLOW: NORMAL COMMENTS: NORMAL 2D ECHOCARDIOGRAM WITH DOPPLER. Cardiac Stress Test: FINDINGS: Moderate sized area of stress-induced ischemia is suspected involving the left ventricular apex extending into the inferior wall. No fixed defect is seen to suggest hibernating myocardium or scarred myocardium. The end diastolic volume is 168 ml, the end systolic volume is 106 ml, and the ejection fraction is 37 %. IMPRESSION: Moderate stress-induced ischemia involving the left ventricular apex extending into the inferior wall. Medical Problem List: Chest pain with history of CAD/CABG/Stents with noted abnormal cardiac stress test showing moderate stress-induced ischemia involving the left ventricular apex extending into the inferior wall HTN Hyperlipidemia DM Type 2 insulin dependent with Hyperglycemia COPD GERD Depression with Anxiety Former tobacco use Chronic pain Brief History of Present Illness: 54-year-old male presented to emergency room with chest pain. Patient with multiple medical problems including CAD with prior stent, hypertension, diabetes, and COPD. Patient was admitted for further evaluation. Initial cardiac enzymes unremarkable. Hospital Course: Patient presented with chest pain. Patient seen and evaluated by Cardiology. Cardiac enzymes unremarkable. Patient with history of CAD/cardiac stents and CABG. Cardiology recommended cardiac stress test. Cardiac stress test showed abnormal stress test with moderate stress-induced ischemia involving the left ventricular apex extending into the inferior wall. Cardiology recommended heart catheterization to be arranged in the hospital for tomorrow. Patient desired to go home as a family member recently and he wanted to go to the . Cardiology expressed the need for heart catheterization. Patient preferred to go home. Patient plans to follow up with cardiology on Tuesday. Cardiology to help arrange for heart catheterization as an outpatient. This is to further evaluate his condition. At discharge patient will continue with aspirin 81 mg daily, Plavix 75 mg daily, metoprolol 50 mg 1 pill twice daily, Lipitor 80 mg daily, and nitroglycerin to be use as needed for chest pain. Patient with hypertension. Blood pressures have remained stable. At discharge he will continue with metoprolol 50 mg 1 pill twice daily. Patient with hyperlipidemia. In light of abnormal stress tests Lipitor has been increased. At discharge he will continue with Lipitor 80 mg daily. Patient with diabetes mellitus type 2 insulin dependent. At discharge he will continue with his insulin regimen. Further adjustment can be done by his PCP. Patient with COPD. This has remained stable. At discharge he will continue with his COPD medication. Recommend follow up with pulmonology as an outpatient to further monitor. Patient with history of GERD. At discharge he will continue with his current medication. Patient with depression with anxiety. At discharge he may continue with his current medication. Patient with chronic pain. Patient will continue with his current pain regimen. Recommend to establish care with pain management to further address. Vital Signs/Physical Exam: Temp Pulse Resp BP Pulse Ox 97.3 F 72 18 118/64 98 07/23/19 11:48 07/23/19 11:48 07/23/19 11:48 07/23/19 11:48 07/23/19 11:48 General: Alert, In no apparent distress, Oriented x3, Cooperative HEENT: Atraumatic Neck: Supple Respiratory: Clear to auscultation bilaterally, Normal air movement Cardiovascular: Normal pulses, Regular rate/rhythm Gastrointestinal: Normal bowel sounds, Soft and benign, Non-distended Musculoskeletal: No erythema, No tenderness, No warmth Neurological: Normal speech, Normal strength at 5/5 x4 extr, Normal tone, Normal affect Laboratory Data at Discharge: WBC 8.7 K/uL (4.3-10.9) 07/21/19 19:00 Hgb 15.6 g/dL (13.6-17.9) 07/21/19 19:00 Hct 45.1 % (39.6-49.0) 07/21/19 19:00 Plt Count 178 K/uL (152-406) 07/21/19 19:00 PT 11.1 SECONDS (9.5-12.5) 07/21/19 19:00 INR 0.94 07/21/19 19:00 Sodium 140 mmol/L (136-145) 07/21/19 19:00 Potassium 3.7 mmol/L (3.5-5.1) 07/21/19 19:00 BUN 9 mg/dL (7-18) 07/21/19 19:00 Creatinine 1.14 mg/dL (0.55-1.3) 07/21/19 19:00 Glucose 171 mg/dL (74-106) H 07/21/19 19:00 Magnesium 2.0 mg/dL (1.8-2.4) 07/21/19 19:00 Total Bilirubin 0.6 mg/dL (0.2-1.0) 07/21/19 19:00 AST 15 U/L (15-37) 07/21/19 19:00 ALT 20 U/L (12-78) 07/21/19 19:00 Alkaline Phosphatase 57 U/L (45-117) 07/21/19 19:00 Troponin I < 0.02 ng/mL (0.0-0.045) 07/22/19 14:00 Triglycerides 115 mg/dL (<150) 07/22/19 05:52 Cholesterol 182 mg/dL (<200) 07/22/19 05:52 HDL Cholesterol 45 mg/dL (40-60) 07/22/19 05:52 Cholesterol/HDL Ratio 4.04 07/22/19 05:52 Home Medications: Albuterol Sulfate [Proventil Hfa] 2 puff IH Q6HP PRN 04/23/14 Aspirin [Low Dose Aspirin EC] 81 mg PO DAILY 04/23/14 Nitroglycerin [Nitrostat*] 1 tab SL PRN PRN 04/23/14 Hydrocodone Bit/Acetaminophen [Hydrocodon-Acetaminophn 10-325] 1 tab PO TID PRN #90 tablet 04/24/14 Metoprolol Tartrate [Lopressor*] 50 mg PO BID #60 tab 04/24/14 Clopidogrel Bisulfate [Plavix*] 1 tab PO DAILY 07/21/19 Insulin Detemir [Levemir] 70 units SQ SEECOM 07/21/19 Insulin Glargine,Hum.rec.anlog [Toujeo Solostar] 30 units SQ SEECOM 07/21/19 Umeclidinium Brm/Vilanterol Tr [Anoro Ellipta 62.5-25 Mcg INH] 1 puff IH DAILY 07/21/19 clonazePAM [Klonopin*] 0.25 mg PO BID 07/21/19 Exenatide Microspheres [Bydureon Pen] 2 mg SQ SEECOM 07/22/19 Atorvastatin Calcium [Lipitor] 80 mg PO BEDTIME #30 tablet 07/23/19 New Medications: Atorvastatin Calcium [Lipitor] 80 mg PO BEDTIME #30 tablet Patient Discharge Instructions: 1. Follow up with PCP within 1 week to follow up this hospitalization. 2. Patient presented with chest pain. Patient seen and evaluated by Cardiology. Cardiac enzymes unremarkable. Patient with history of CAD/cardiac stents and CABG. Cardiology recommended cardiac stress test. Cardiac stress test showed abnormal stress test with moderate stress- induced ischemia involving the left ventricular apex extending into the inferior wall. Cardiology recommended heart catheterization to be arranged in the hospital for tomorrow. Patient desired to go home as a family member recently and he wanted to go to the . Cardiology expressed the need for heart catheterization. Patient preferred to go home. Patient plans to follow up with cardiology on Tuesday. Cardiology to help arrange for heart catheterization as an outpatient. This is to further evaluate his condition. At discharge patient will continue with aspirin 81 mg daily, Plavix 75 mg daily, metoprolol 50 mg 1 pill twice daily, Lipitor 80 mg daily, and nitroglycerin to be use as needed for chest pain. Patient with hypertension. Blood pressures have remained stable. At discharge he will continue with metoprolol 50 mg 1 pill twice daily. 3. Patient with hyperlipidemia. In light of abnormal stress tests Lipitor has been increased. At discharge he will continue with Lipitor 80 mg daily. 4. Patient with diabetes mellitus type 2 insulin dependent. At discharge he will continue with his insulin regimen. Further adjustment can be done by his PCP. 5. Patient with COPD. This has remained stable. At discharge he will continue with his COPD medication. Recommend follow up with pulmonology as an outpatient to further monitor. 6. Patient with history of GERD. At discharge he will continue with his current medication. 7. Patient with depression with anxiety. At discharge he may continue with his current medication. 8. Patient with chronic pain. Patient will continue with his current pain regimen. Recommend to establish care with pain management to further address. Diet: AHA Activity: Ad luis Followup: Fito Zapata MD [ACTIVE - CAN ADMIT] - Time spent managing pt's care (in minutes): 55
[2019-07-23 14:40] VITALS: BP 113/58; TEMP 97.9
[2019-07-23] MEDS ORDERED: INSULIN -REGULAR HUMAN 50 UNIT/0.5 ML ML SQ SCH (16:30)
[2019-07-23] MEDS ORDERED: INSULIN GLARGINE 100 UNITS/ML SQ SCH (21:00)
== END 2019-07-23 16:57 | disposition home or self-care (01) | DRG 303 ==
LOC: ER 18:49 → 2ND 22:58 → OBSVTOIN 22:58 → INTOOBSV 22:58 → OBSVTOIN 07-22 11:12
PROVIDERS: ADMIT Hospitalist; ATTEND Hospitalist
DX: I25.10 Atherosclerotic heart disease of native coronary artery without angina pectoris (principal); Z95.5 Presence of coronary angioplasty implant and graft; I10 Essential (primary) hypertension; E78.5 Hyperlipidemia, unspecified; E11.65 Type 2 diabetes mellitus with hyperglycemia; J44.9 Chronic obstructive pulmonary disease, unspecified; K21.9 Gastro-esophageal reflux disease without esophagitis; F41.8 Other specified anxiety disorders; Z87.891 Personal history of nicotine dependence; G89.29 Other chronic pain; Z95.1 Presence of aortocoronary bypass graft; R94.39 Abnormal result of other cardiovascular function study; I25.9 Chronic ischemic heart disease, unspecified; Z23 Encounter for immunization
CPT/HCPCS: 36415; 71045; 78452; 80048; 80061; 80076; 81003; 81015; 82947; 83735; 83880; 84484; 85025; 85610; 90471; 90670; 93005; 93017; 93306; 96374; 96375; 99285; A9500; G0378; J1170; J1650; J2405; J2785; J7030; J7606; Q2035

== ENCOUNTER 2019-07-29 17:03 | Observation (INO) | payer OTHER ==
[2019-07-29] MEDS ORDERED: NA CHLORIDE 0.9% 1,000 ML ONE (17:14)
[2019-07-29] MEDS ORDERED: ASPIRIN EC 81 MG TAB PO ONE (17:14)
[2019-07-29 17:25] LABS: Absolute Lymphocytes (CBC) 3.4 K/uL (0.7-4.9); Basophils % 1.2 % (0-1.3); Hematocrit 42.7 % (39.6-49.0); Lymphocytes % 34.7 % (15.3-44.8); MPV 8.1 fL (7.6-11.3); RBC Red Blood Cell Count 5.11 M/uL (4.33-5.43)
--- NOTE | 2019-07-29 17:43 | EDPHYS ---
Physician Documentation [facility] Name: Ran Cummings Age: 54 yrs Sex: Male : 1965 Arrival Date: 07/29/2019 Time: 17:04 Bed 8 Private MD: ED Physician Justin Parra HPI: 07/29 17:34 This 54 yrs old Male presents to ER via Wheelchair with complaints of Chest ciera Pain. 17:34 The patient or guardian reports chest pain that is located primarily in the substernal ciera area. Onset: 1 day(s) ago. The pain radiates to the left shoulder, Associated signs and symptoms: Pertinent positives: dizziness, nausea, shortness of breath. The chest pain is described as a pressure. Duration: The patient or guardian reports a single episode, that is still ongoing. Modifying factors: The symptoms are alleviated by nothing. the symptoms are aggravated by nothing. Severity of pain: At its worst the pain was moderate in the emergency department the pain is unchanged. The patient has not experienced similar symptoms in the past. Historical: - Allergies: 17:13 GABAPENTIN; aj1 - Home Meds: 17:13 aspirin 81 mg Oral TbEC 1 tab once daily [Active]; Levemir 100 unit/mL subcutaneous aj1 soln daily [Active]; Metoprolol Tartrate Oral once daily [Active]; Plavix 75 mg Oral tab 1 tab once daily [Active]; Toujeo SoloStar 300 unit/mL (1.5 mL) subcutaneous inpn daily [Active]; - PMHx: 17:13 Diabetes - NIDDM; Hypertension; Myocardial infarction; aj1 - Immunization history:: Flu vaccine is up to date. - Social history:: Smoking status: Patient/guardian denies using tobacco. - Ebola Screening: : Patient denies travel to an Ebola-affected area in the 21 days before illness onset. - Family history:: not pertinent. ROS: 17:34 Constitutional: Negative for fever, chills, and weight loss, Eyes: Negative for injury, ciera pain, redness, and discharge, ENT: Negative for injury, pain, and discharge, Neck: Negative for injury, pain, and swelling, Respiratory: Negative for shortness of breath, cough, wheezing, and pleuritic chest pain, Abdomen/GI: Negative for abdominal pain, nausea, vomiting, diarrhea, and constipation, Back: Negative for injury and pain, : Negative for injury, bleeding, discharge, and swelling, MS/Extremity: Negative for injury and deformity, Skin: Negative for injury, rash, and discoloration, Neuro: Negative for headache, weakness, numbness, tingling, and seizure, Psych: Negative for depression, anxiety, suicide ideation, homicidal ideation, and hallucinations, Allergy/Immunology: Negative for hives, rash, and allergies, Endocrine: Negative for neck swelling, polydipsia, polyuria, polyphagia, and marked weight changes, Hematologic/Lymphatic: Negative for swollen nodes, abnormal bleeding, and unusual bruising. 17:34 Cardiovascular: Positive for chest pain, of the chest. Exam: 17:34 Constitutional: This is a well developed, well nourished patient who is awake, alert, ciera and in no acute distress. Head/Face: Normocephalic, atraumatic. Eyes: Pupils equal round and reactive to light, extra-ocular motions intact. Lids and lashes normal. Conjunctiva and sclera are non-icteric and not injected. Cornea within normal limits. Periorbital areas with no swelling, redness, or edema. ENT: Nares patent. No nasal discharge, no septal abnormalities noted. Tympanic membranes are normal and external auditory canals are clear. Oropharynx with no redness, swelling, or masses, exudates, or evidence of obstruction, uvula midline. Mucous membranes moist. Neck: Trachea midline, no thyromegaly or masses palpated, and no cervical lymphadenopathy. Supple, full range of motion without nuchal rigidity, or vertebral point tenderness. No Meningismus. Chest/axilla: Normal chest wall appearance and motion. Nontender with no deformity. No lesions are appreciated. Respiratory: Lungs have equal breath sounds bilaterally, clear to auscultation and percussion. No rales, rhonchi or wheezes noted. No increased work of breathing, no retractions or nasal flaring. Abdomen/GI: Soft, non-tender, with normal bowel sounds. No distension or tympany. No guarding or rebound. No evidence of tenderness throughout. Back: No spinal tenderness. No costovertebral tenderness. Full range of motion. Male : Normal genitalia with no discharge or lesions. Skin: Warm, dry with normal turgor. Normal color with no rashes, no lesions, and no evidence of cellulitis. MS/ Extremity: Pulses equal, no cyanosis. Neurovascular intact. Full, normal range of motion. Neuro: Awake and alert, GCS 15, oriented to person, place, time, and situation. Cranial nerves II-XII grossly intact. Motor strength 5/5 in all extremities. Sensory grossly intact. Cerebellar exam normal. Normal gait. Psych: Awake, alert, with orientation to person, place and time. Behavior, mood, and affect are within normal limits. 17:34 Cardiovascular: Rate: tachycardic, Rhythm: regular, Pulses: no pulse deficits are appreciated, Heart sounds: normal, Edema: is not appreciated, JVD: is not appreciated. Vital Signs: 17:13 BP 163 / 108; Pulse 119; Resp 20; Temp 98.2; Pulse Ox 98% on R/A; Weight 98.43 kg (R); aj1 Height 5 ft. 9 in. (175.26 cm) (R); Pain 7/10; 18:14 BP 132 / 89; Pulse 90; Resp 16; Pulse Ox 95% ; aj1 17:13 Body Mass Index 32.04 (98.43 kg, 175.26 cm) aj1 MDM: 17:09 Patient medically screened. [facility] 17:41 Data reviewed: vital signs, nurses notes, lab test result(s), EKG, radiologic studies, ciera plain films. 07/29 17:11 Order name: Basic Metabolic Panel; Complete Time: 18:17 [facility] 07/29 17:11 Order name: CBC with Diff; Complete Time: 18:17 [facility] 07/29 17:11 Order name: LFT's; Complete Time: 18:17 [facility] 07/29 17:11 Order name: Magnesium; Complete Time: 18:17 [facility] 07/29 17:11 Order name: NT PRO-BNP; Complete Time: 18:17 [facility] 07/29 17:11 Order name: PT-INR; Complete Time: 18:17 [facility] 07/29 17:11 Order name: Troponin (emerg Dept Use Only); Complete Time: 18:17 [facility] 07/29 17:11 Order name: Lipase; Complete Time: 18:17 [facility] 07/29 18:26 Order name: CBC with Automated Diff EDMS 07/29 18:26 Order name: CBC with Automated Diff EDMS 07/29 18:26 Order name: CKMB Creatine Kinase MB EDMS 07/29 18:26 Order name: CKMB Creatine Kinase MB EDLA 07/29 18:26 Order name: CKMB Creatine Kinase MB EDLA 07/29 18:26 Order name: CKMB Creatine Kinase MB EDLA 07/29 17:11 Order name: XRAY Chest (1 view); Complete Time: 18:17 [facility] 07/29 18:26 Order name: Comprehensive Metabolic Panel EDLA 07/29 18:26 Order name: Comprehensive Metabolic Panel EDLA 07/29 18:26 Order name: Creatine Phosphokinase EDLA 07/29 18:26 Order name: Creatine Phosphokinase EDLA 07/29 18:26 Order name: Creatine Phosphokinase EDLA 07/29 18:26 Order name: Creatine Phosphokinase EDLA 07/29 18:26 Order name: Lipid Profile EDLA 07/29 18:26 Order name: Lipid Profile EDLA 07/29 18:26 Order name: Troponin I EDLA 07/29 18:26 Order name: Troponin I EDLA 07/29 18:26 Order name: Troponin I [facility] 07/29 19:42 Order name: Urine Dipstick--Ancillary (enter results) ds4 07/29 17:11 Order name: EKG; Complete Time: 17:12 [facility] 07/29 17:11 Order name: Cardiac monitoring; Complete Time: 17:17 [facility] 07/29 17:11 Order name: EKG - Nurse/Tech; Complete Time: 17:18 [facility] 07/29 17:11 Order name: IV Saline Lock; Complete Time: 17:18 [facility] 07/29 17:11 Order name: Labs collected and sent; Complete Time: 17:18 [facility] 07/29 17:11 Order name: O2 Per Protocol; Complete Time: 17:18 [facility] 07/29 17:11 Order name: O2 Sat Monitoring; Complete Time: 17:18 [facility] 07/29 17:11 Order name: Urine Dipstick-Ancillary (obtain specimen); Complete Time: 19:41 [facility] 07/29 18:26 Order name: CONS Pharmacy Consult EDLA 07/29 18:26 Order name: Heart Healthy EDLA 07/29 18:26 Order name: EKG Electrocardiogram EDLA 07/29 18:26 Order name: EKG Electrocardiogram EDMS Administered Medications: 17:24 Drug: NS 0.9% 1000 ml Route: IV; Rate: 75 ml/hr; Site: right antecubital; mg2 17:24 Drug: Aspirin Chewable Tablet 162 mg Route: PO; mg2 18:29 Follow up: Response: No adverse reaction bp 17:45 Drug: Lopressor 5 mg Route: IVP; Site: right antecubital; aj1 18:29 Follow up: Response: No adverse reaction bp 17:45 Drug: Lopressor (metoprolol TARTRATE) 50 mg Route: PO; aj1 18:29 Follow up: Response: No adverse reaction bp 17:45 Drug: morphine 4 mg Route: IVP; Site: right antecubital; aj1 18:30 Follow up: Response: Pain is decreased bp 17:45 Drug: Zofran 4 mg Route: IVP; Site: right antecubital; aj1 18:29 Follow up: Response: No adverse reaction bp 17:45 Drug: Lovenox 1 mg/kg Route: Sub-Q; Site: left lower abdomen; aj1 18:29 Follow up: Response: No adverse reaction bp 18:30 Drug: Lasix 20 mg Route: IVP; Site: right antecubital; bp 18:44 Follow up: Response: No adverse reaction bp Disposition: 07/29/19 17:42 Hospitalization ordered by Giuseppe Cummings for Inpatient Admission. Preliminary diagnosis are Other chest pain, Type 2 diabetes mellitus, Essential (primary) hypertension, Unspecified combined systolic (congestive) and diastolic (congestive) heart failure. - Bed requested for Telemetry/MedSurg (Inpatient). - Status is Inpatient Admission. ss - Condition is Fair. - Problem is new. - Symptoms have improved. UTI on Admission? No Signatures: Dispatcher [employer] EDLA Naina Velazquez RN RN aj1 Justin Parra MD MD cha Martinez, Eric em1 Carlyn Sanabria RN RN ss Abhinav Coleman RN RN bp Carter Jean, AYAZ RN mg2 Corrections: (The following items were deleted from the chart) 18:19 17:42 Hospitalization Ordered by Giuseppe Cummings MD for Inpatient Admission. Preliminary ciera diagnosis is Other chest pain; Type 2 diabetes mellitus; Essential (primary) hypertension. Bed requested for Telemetry/MedSurg (Inpatient). Status is Inpatient Admission. Condition is Fair. Problem is new. Symptoms have improved. UTI on Admission? No. ciera 18:34 18:19 07/29/2019 17:42 Hospitalization Ordered by Giuseppe Cummings MD for Inpatient em1 Admission. Preliminary diagnosis is Other chest pain; Type 2 diabetes mellitus; Essential (primary) hypertension; Unspecified combined systolic (congestive) and diastolic (congestive) heart failure. Bed requested for Telemetry/MedSurg (Inpatient). Status is Inpatient Admission. Condition is Fair. Problem is new. Symptoms have improved. UTI on Admission? No. ciera 20:23 18:34 07/29/2019 17:42 Hospitalization Ordered by Giuseppe Cummings MD for Inpatient ss Admission. Preliminary diagnosis is Other chest pain; Type 2 diabetes mellitus; Essential (primary) hypertension; Unspecified combined systolic (congestive) and diastolic (congestive) heart failure. Bed requested for Telemetry/MedSurg (Inpatient). Status is Inpatient Admission. Condition is Fair. Problem is new. Symptoms have improved. UTI on Admission? No. em1
--- NOTE | 2019-07-29 17:43 | ER ---
Nurse's Notes [facility] Name: Ran Cummings Age: 54 yrs Sex: Male : 1965 Arrival Date: 07/29/2019 Time: 17:04 Bed 8 Private MD: Diagnosis: Other chest pain;Type 2 diabetes mellitus;Essential (primary) hypertension;Unspecified combined systolic (congestive) and diastolic (congestive) heart failure Presentation: 07/29 17:11 Presenting complaint: Patient states: He was admitted here and suppose to have a heart aj1 cath on Tuesday, but a family member so he left AMA to attend the . Now he is having chest pain again that is the same as his previous episode. Patient reports left sided chest pain that radiates to the back and numbness to the left arm for the past 2 hours. Transition of care: patient was not received from another setting of care. Onset of symptoms was July 29, 2019. Risk Assessment: Do you want to hurt yourself or someone else? Patient reports no desire to harm self or others. Initial Sepsis Screen: Does the patient meet any 2 criteria? HR > 90 bpm. No. Patient's initial sepsis screen is negative. Does the patient have a suspected source of infection? No. Patient's initial sepsis screen is negative. Care prior to arrival: None. 17:11 Method Of Arrival: Wheelchair aj1 17:11 Acuity: DASHA 2 aj1 Triage Assessment: 17:13 General: Appears uncomfortable, Behavior is calm, cooperative, appropriate for age. aj1 Pain: Complains of pain in anterior aspect of left upper chest and left breast Pain radiates to thoracic area and left arm Pain currently is 7 out of 10 on a pain scale. Quality of pain is described as squeezing, Pain began 2 hours ago. Neuro: Level of Consciousness is awake, alert, obeys commands, Oriented to person, place, time, situation. Cardiovascular: Reports chest pain, shortness of breath, Patient's skin is warm and dry. Rhythm is sinus tachycardia. Respiratory: Reports cough that is persistent Airway is patent Respiratory effort is even, unlabored, Respiratory pattern is regular, symmetrical. Derm: Skin is pink, warm \T\ dry. normal. Musculoskeletal: Circulation, motion, and sensation intact. Historical: - Allergies: 17:13 GABAPENTIN; aj1 - Home Meds: 17:13 aspirin 81 mg Oral TbEC 1 tab once daily [Active]; Levemir 100 unit/mL subcutaneous aj1 soln daily [Active]; Metoprolol Tartrate Oral once daily [Active]; Plavix 75 mg Oral tab 1 tab once daily [Active]; Toujeo SoloStar 300 unit/mL (1.5 mL) subcutaneous inpn daily [Active]; - PMHx: 17:13 Diabetes - NIDDM; Hypertension; Myocardial infarction; aj1 - Immunization history:: Flu vaccine is up to date. - Social history:: Smoking status: Patient/guardian denies using tobacco. - Ebola Screening: : Patient denies travel to an Ebola-affected area in the 21 days before illness onset. - Family history:: not pertinent. Screenin:19 Abuse screen: Denies threats or abuse. Denies injuries from another. Nutritional aj1 screening: No deficits noted. Tuberculosis screening: No symptoms or risk factors identified. Fall Risk None identified. Assessment: 17:19 General: Appears in no apparent distress. comfortable, Behavior is cooperative, aj1 appropriate for age, anxious. Pain: Complains of pain in mid-sternal area Pain currently is 7 out of 10 on a pain scale. Neuro: Level of Consciousness is awake, alert, obeys commands, Oriented to person, place, time, situation, Appropriate for age. Cardiovascular: Rhythm is sinus tachycardia. Respiratory: Airway is patent Respiratory effort is even, unlabored, Respiratory pattern is regular, symmetrical. GI: No signs and/or symptoms were reported involving the gastrointestinal system. : No signs and/or symptoms were reported regarding the genitourinary system. EENT: No deficits noted. Derm: No deficits noted. Musculoskeletal: No deficits noted. 18:15 Reassessment: ALL CURRENT ORDERS COMPLETED, ADMIT IN PROCESS. aj1 Vital Signs: 17:13 BP 163 / 108; Pulse 119; Resp 20; Temp 98.2; Pulse Ox 98% on R/A; Weight 98.43 kg (R); aj1 Height 5 ft. 9 in. (175.26 cm) (R); Pain 7/10; 18:14 BP 132 / 89; Pulse 90; Resp 16; Pulse Ox 95% ; aj1 17:13 Body Mass Index 32.04 (98.43 kg, 175.26 cm) aj1 ED Course: 17:04 Patient arrived in ED. as 17:06 Abhinav Coleman, RN is Primary Nurse. bp 17:09 Justin Parra MD is Attending Physician. ciera 17:12 Triage completed. aj1 17:13 Arm band placed on Patient placed in an exam room. aj1 17:15 Patient has correct armband on for positive identification. Bed in low position. Call aj1 light in reach. Side rails up X 1. satellite project site monitor on. Pulse ox on. NIBP on. 17:16 Patient maintains SpO2 saturation greater than 95% on room air. aj1 17:18 Inserted saline lock: 20 gauge in right antecubital area, using aseptic technique. aj1 Blood collected. 17:41 Giuseppe Cummings MD is Hospitalizing Provider. [facility] 17:44 XRAY Chest (1 view) In Process Unspecified. EDMS 20:00 No provider procedures requiring assistance completed. mg2 20:01 Patient admitted, IV remains in place. mg2 Administered Medications: 17:24 Drug: NS 0.9% 1000 ml Route: IV; Rate: 75 ml/hr; Site: right antecubital; mg2 17:24 Drug: Aspirin Chewable Tablet 162 mg Route: PO; mg2 18:29 Follow up: Response: No adverse reaction bp 17:45 Drug: Lopressor 5 mg Route: IVP; Site: right antecubital; aj1 18:29 Follow up: Response: No adverse reaction bp 17:45 Drug: Lopressor (metoprolol TARTRATE) 50 mg Route: PO; aj1 18:29 Follow up: Response: No adverse reaction bp 17:45 Drug: morphine 4 mg Route: IVP; Site: right antecubital; aj1 18:30 Follow up: Response: Pain is decreased bp 17:45 Drug: Zofran 4 mg Route: IVP; Site: right antecubital; aj1 18:29 Follow up: Response: No adverse reaction bp 17:45 Drug: Lovenox 1 mg/kg Route: Sub-Q; Site: left lower abdomen; aj1 18:29 Follow up: Response: No adverse reaction bp 18:30 Drug: Lasix 20 mg Route: IVP; Site: right antecubital; bp 18:44 Follow up: Response: No adverse reaction bp Outcome: 17:42 Decision to Hospitalize by Provider. ciera 20:00 Admitted to Tele accompanied by tech, via wheelchair, room 415, with chart, Report mg2 called to AYAZ Young 20:00 Condition: stable 20:00 Instructed on the need for admit, Demonstrated understanding of instructions. 20:23 Patient left the ED. Signatures: Dispatcher [employer] Naina Avina, AYAZ RN aj1 Justin Parra MD MD cha Martinez, Amelia as Smirch, Shelby, RN RN Abhinav Coleman RN RN bp Gardose, Michele, RN RN mg2
[2019-07-29 17:46] LABS: ALT/SGPT 30 U/L (12-78); AST/SGOT 10 U/L (15-37); Albumin 3.8 g/dL (3.4-5.0); Alkaline Phosphatase 68 U/L (45-117); BUN Blood Urea Nitrogen 13 mg/dL (7-18); Bicarbonate 26 mmol/L (21-32); Bilirubin Direct 0.2 mg/dL (0-0.2); Bilirubin Total 0.7 mg/dL (0.2-1.0); Glucose Level 205 mg/dL (74-106); Lipase 95 U/L (73-393); Magnesium 2.1 mg/dL (1.8-2.4); NT PRO-BNP 494 pg/mL (<125); Potassium 3.5 mmol/L (3.5-5.1); Protein, Total 7.5 g/dL (6.4-8.2); Sodium Level 139 mmol/L (136-145); Troponin (Emerg Dept Use Only) < 0.02 ng/mL (0.0-0.045)
--- NOTE | 2019-07-29 17:49 | RAD REPORT ---
EXAM DESCRIPTION: RAD - Chest Single View - 07/29/2019 5:43 pm CLINICAL HISTORY: Left-sided chest pain COMPARISON: July 21 TECHNIQUE: AP portable chest image was obtained 1723 hour . FINDINGS: Lung volumes are low accentuating baseline interstitial pattern. Lung markings are promine nt but slightly improved from comparison. Perihilar interstitial opacification and mild vascular engo rgement seen. Heart size is within normal limits. Sternotomy wires are in place. No measurable pleura l effusion and no pneumothorax. No acute bony abnormality seen. No acute aortic findings suspected. IMPRESSION: Findings suggest a minimal failure/ volume overload. Overall pattern is better than seen July 21.
[2019-07-29] MEDS ORDERED: ENOXAPARIN 100 MG/ML SYR SQ ONE (18:04)
[2019-07-29] MEDS ORDERED: METOPROLOL TAR 50 MG TAB ONE (18:04)
[2019-07-29] MEDS ORDERED: ONDANSETRON 4 MG/2 ML VIAL ONE (18:04)
[2019-07-29] MEDS ORDERED: MORPHINE 4 MG/ML SYR ONE (18:04)
[2019-07-29] MEDS ORDERED: METOPROLOL TARTRATE 5 MG/5 ML INJ IV ONE (18:05)
[2019-07-29] MEDS ORDERED: ONDANSETRON 4 MG/2 ML VIAL IV PRN (18:18)
[2019-07-29] MEDS ORDERED: ACETAMINOPHEN 500 MG TAB PO PRN (18:18)
[2019-07-29] MEDS ORDERED: HYDROCODONE/APAP 10/325 TAB PO PRN (18:21)
[2019-07-29] MEDS ORDERED: ALBUTEROL INHALER 60 PUFF/8 GM IH PRN (18:21)
[2019-07-29] MEDS ORDERED: NITROGLYCERIN 0.4 MG/TAB SL PRN (18:21)
--- NOTE | 2019-07-29 18:28 | P.HP ---
Certification for Inpatient Patient admitted to: Inpatient With expected LOS: >2 Midnights Patient will require the following post-hospital care: None Practitioner: I am a practitioner with admitting privileges, knowledge of patient current condition, hospital course, and medical plan of care. Services: Services provided to patient in accordance with Admission requirements found in Title 42 Section 412.3 of the Code of Federal Regulations Patient History Date of Service: 07/30/19 Reason for admission: chest Pain History of Present Illness: 54 year old male with past medical history hypertension, hyperlipidemia, diabetes , anxiety, CAD physically been hospital for unstable angina and was discharged before getting a heart catheterization at patient's request came back to ER with chest pain started this afternoon. pain is located in retrosternal , pressure-like 6/10 severity with radiation to the back betwen Shoulder blades . As the pain was progressively worsening. He was brought to ER He was assessed in the ER and was found to have chest pain and possible unstable angina and was admitted for further management . Allergies gabapentin [From Neurontin] Allergy (Intermediate, Verified 07/21/19 23:26) redness Home medications list reviewed: Yes Home Medications: Albuterol Sulfate [Proventil Hfa] 2 puff IH Q6HP PRN 04/23/14 Aspirin [Low Dose Aspirin EC] 81 mg PO DAILY 04/23/14 Nitroglycerin [Nitrostat*] 1 tab SL PRN PRN 04/23/14 Clopidogrel Bisulfate [Plavix*] 1 tab PO DAILY 07/21/19 Insulin Glargine,Hum.rec.anlog [Touphyllis Solostar] 30 units SQ SEECOM 07/21/19 Umeclidinium Brm/Vilanterol Tr [Anoro Ellipta 62.5-25 Mcg INH] 1 puff IH DAILY 07/21/19 clonazePAM [Klonopin*] 0.25 mg PO BID 07/21/19 Atorvastatin Calcium [Lipitor] 40 mg PO DAILY 07/29/19 Liraglutide [Victoza 2-Rojas] 0.6 mg SQ DAILY 07/29/19 Metoprolol Tartrate [Lopressor*] 100 mg PO BID #60 tab 07/30/19 Ranolazine [Ranexa] 1,000 mg PO BID #60 tab.er.12h 07/30/19 - Past Medical/Surgical History Diabetic: Yes Past Medical History: Reviewed- Non-Contributory -: CHF -: HTN -: CAD, 3 stents placed in 2011, Cardiology-Dr Pritchard -: DM Neuropathy -: COPD -: History of Tobacco abuse, Quit in 2012 -: Hyperlipidemia Past Surgical History: Reviewed- Non-Contributory -: Cyst removal to face -: Appendectomy -: Coronary artery stent placement -: quadruple bypass 2013 -: Valve replacement 2013 Psychosocial/ Personal History: -27 years, Children-4, 6 grandkids, Retired otr truck driver. - Family History Family History: Reviewed- Non-Contributory - Family History Mother -: Heart disease, Diabetes, Other (see notes) Notes: Heart failure - Social History Smoking Status: Former smoker Alcohol use: No CD- Drugs: No Caffeine use: Yes Review of Systems 10-point ROS is otherwise unremarkable General: Unremarkable ENT: Unremarkable Respiratory: Unremarkable Physical Examination - Vital Signs Temperature: 97.5 F Blood Pressure: 138/78 Pulse: 86 Respirations: 22 Pulse Ox (%): 96 - Physical Exam General: Alert, In no apparent distress, Oriented x3 HEENT: Atraumatic, Normocephalic Neck: Supple, 2+ carotid pulse no bruit Respiratory: Clear to auscultation bilaterally, Normal air movement Cardiovascular: Normal pulses, Regular rate/rhythm Capillary refill: <2 Seconds Gastrointestinal: Hypoactive, Soft and benign Musculoskeletal: No clubbing, No swelling Integumentary: No rashes, No breakdown Neurological: Normal speech, Normal strength at 5/5 x4 extr Lymphatics: No axilla or inguinal lymphadenopathy Urinary: Other (No bladder distention) External genitalia: Deferred Rectal: Deferred - Studies Laboratory Data (last 24 hrs) 07/29/19 17:15: PT 11.8, INR 1.00 07/29/19 17:15: WBC 9.7, Hgb 15.1, Hct 42.7, Plt Count 174 07/29/19 17:15: Sodium 139, Potassium 3.5, BUN 13, Creatinine 1.24, Glucose 205 H, Magnesium 2.1, Total Bilirubin 0.7, AST 10 L, ALT 30, Alkaline Phosphatase 68 , Lipase 95 Assessment and Plan - Problems (Diagnosis) (1) Chest pain, rule out acute myocardial infarction Current Visit: No Status: Acute Plan: Chest pain rule out ACS Possible unstable angina With monitor under telemetry Serial EKGs Trend cardiac enzymes Cardiology consult Patient has history of CAD status post CABG Was start on aspirin, statin, Plavix nitro p.r.n. Morphine p.r.n. Start on insulin sliding scale continue home medications and titrate as needed Will get an A1c and lipid panel in a.m. GI/DVT prophylaxis (2) Diabetes mellitus Current Visit: No Status: Acute Plan: Continue home insulin regimen Will get an A1c in a.m. Insulin sliding scale (3) CAD (coronary artery disease) Current Visit: No Status: Chronic Plan: Continue home medications Titrate as needed Monitor under telemetry Qualifiers: Coronary Disease-Associated Artery/Lesion type: bypass graft (4) COPD (chronic obstructive pulmonary disease) Current Visit: No Status: Chronic Plan: Continue bronchodilators p.r.n. Oxygen support Qualifiers: COPD type: chronic bronchitis (5) DM neuropathy, type II diabetes mellitus Current Visit: No Status: Chronic Plan: Continue home medications and titrate as needed (6) Hyperlipidemia Current Visit: No Status: Chronic Plan: Continue home medications and titrate as needed Discharge Plan: Home Plan to discharge in: 48 Hours - Advance Directives Does patient have a Living Will: Yes Does patient have a Durable POA for Healthcare: Yes Time Spent Managing Pts Care (In Minutes): 45
[2019-07-29] MEDS ORDERED: EXENATIDE MICROSPHERES 2 MG SQ SCH (18:30)
[2019-07-29] MEDS ORDERED: FUROSEMIDE 20 MG/ 2ML VIAL ONE (18:42)
[2019-07-29 20:28] LABS: Urine Blood TRACE (NEG); Urine Glucose 1+ (NEG); Urine Protein 1+ (NEG); Urine Specific Gravity 1.015 (1.005-1.030); Urine pH 5.5 (5.0-7.0)
[2019-07-29] MEDS: METOPROLOL TAR 25 MG TAB PO SCH (21:00)
[2019-07-29] MEDS ORDERED: ATORVASTATIN 80 MG TAB PO SCH (21:00)
[2019-07-29] MEDS: clonazePAM 0.5 MG TAB PO SCH (21:17)
[2019-07-29 21:36] LABS: CKMB Creatine Kinase MB < 1.0 ng/mL (0.3-3.6); Creatine Phosphokinase 55 U/L (39-308); Troponin I < 0.02 ng/mL (0.0-0.045)
[2019-07-29 21:43] VITALS: BMI 32.0
[2019-07-29] MEDS: MORPHINE 2 MG/ML SYR IV PRN (22:06)
[2019-07-30 01:30] LABS: CKMB Creatine Kinase MB < 1.0 ng/mL (0.3-3.6); Creatine Phosphokinase 56 U/L (39-308)
[2019-07-30] MEDS: MORPHINE 2 MG/ML SYR IV PRN ×2 (03:12→15:06)
[2019-07-30 06:04] LABS: Albumin 3.4 g/dL (3.4-5.0); Potassium 3.7 mmol/L (3.5-5.1); Protein, Total 6.6 g/dL (6.4-8.2)
[2019-07-30 06:06] LABS: Hematocrit 42.7 % (39.6-49.0); RBC Red Blood Cell Count 5.03 M/uL (4.33-5.43)
[2019-07-30 06:07] LABS: Absolute Lymphocytes (CBC) 3.2 K/uL (0.7-4.9); Basophils % 0.7 % (0-1.3); Lymphocytes % 33.9 % (15.3-44.8); MPV 8.4 fL (7.6-11.3)
--- NOTE | 2019-07-30 07:06 | EKG ---
Test Date: 2019-07-29 Test Time: 17:22:07 Food Technician: MG MEASUREMENT RESULTS: Intervals: Rate: 118 NC: 144 QRSD: 92 QT: 340 QTc: 476 [place]: P: 70 NC: 144 QRS: -42 T: 10 INTERPRETIVE STATEMENTS: Sinus tachycardia Left atrial enlargement Left axis deviation Nonspecific ST and T wave abnormality Abnormal ECG Compared to ECG 07/21/2019 18:57:38 ST (T wave) deviation now present Sinus rhythm no longer present Electronically Signed On 07-30-19 07:06:09 TANGLED YARN SPOOL STRAIGHTENER by Fito Zapata
[2019-07-30] MEDS: clonazePAM 0.5 MG TAB PO SCH (08:00)
[2019-07-30] MEDS: METOPROLOL TAR 25 MG TAB PO SCH (08:01)
[2019-07-30] MEDS ORDERED: D50W 25 GM/50 ML SYRINGE/VIAL IV PRN (08:47)
[2019-07-30] MEDS ORDERED: GLUCAGON 1 MG/VIAL IM PRN (08:47)
[2019-07-30] MEDS ORDERED: ASPIRIN EC 81 MG TAB PO SCH (09:00)
[2019-07-30] MEDS ORDERED: CLOPIDOGREL 75 MG TABLET PO SCH (09:00)
--- NOTE | 2019-07-30 09:37 | P.PN ---
Subjective Date of Service: 07/30/19 Chief Complaint: chest Pain Subjective: No new changes, Improving pain is better Scheduled for left heart cath today Review of Systems 10-point ROS is otherwise unremarkable General: Unremarkable ENT: Unremarkable Physical Examination - Vital Signs Temperature: 97.7 F Blood Pressure: 105/66 Pulse: 89 Respirations: 18 Pulse Ox (%): 94 - Physical Exam General: Alert, In no apparent distress HEENT: Atraumatic, Normocephalic Neck: Supple, 2+ carotid pulse no bruit Respiratory: Clear to auscultation bilaterally, Normal air movement Cardiovascular: Regular rate/rhythm, Normal S1 S2 Capillary refill: <2 Seconds Gastrointestinal: Soft and benign, W/out hepatosplenomegaly Musculoskeletal: No clubbing, No swelling Integumentary: No rashes Neurological: Normal speech, Normal strength at 5/5 x4 extr Lymphatics: No axilla or inguinal lymphadenopathy External genitalia: Deferred Rectal: Deferred - Studies Laboratory Data (last 24 hrs) 07/29/19 17:15: PT 11.8, INR 1.00 07/29/19 17:15: WBC 9.7, Hgb 15.1, Hct 42.7, Plt Count 174 07/29/19 17:15: Sodium 139, Potassium 3.5, BUN 13, Creatinine 1.24, Glucose 205 H, Magnesium 2.1, Total Bilirubin 0.7, AST 10 L, ALT 30, Alkaline Phosphatase 68 , Lipase 95 Assessment & Plan - Problems (Diagnosis) (1) Chest pain, rule out acute myocardial infarction Current Visit: No Status: Acute Plan: monitor under telemetry Serial EKGs Trended cardiac enzymes Cardiology consult appreciated Getting a left heart cath today Patient has history of CAD status post CABG Was start on aspirin, statin, Plavix, nitro p.r.n. Morphine p.r.n. continue home medications and titrate as needed (2) Diabetes mellitus Current Visit: No Status: Acute Plan: Continue home medications and titrate (3) CAD (coronary artery disease) Current Visit: No Status: Chronic Plan: Continue home medications and titrate Qualifiers: Coronary Disease-Associated Artery/Lesion type: bypass graft (4) COPD (chronic obstructive pulmonary disease) Current Visit: No Status: Chronic Plan: Continue home medications and titrate Qualifiers: COPD type: chronic bronchitis (5) DM neuropathy, type II diabetes mellitus Current Visit: No Status: Chronic Plan: Continue home medications and titrate (6) Hyperlipidemia Current Visit: No Status: Chronic Plan: Continue home medications and titrate Discharge Plan: Home Plan to discharge in: 24 Hours Time Spent Managing Pts Care (In Minutes): 40
[2019-07-30] MEDS ORDERED: HEPA 1000U/500MLS 1,000 UNIT/500 ML BAG IV ONE ×2 (09:40)
[2019-07-30] MEDS ORDERED: NA CHLORIDE 0.9% 500 ML ONE (10:01)
[2019-07-30] MEDS ORDERED: NA CHLORIDE 0.9% 0 ML IV ONE (10:02)
[2019-07-30 10:04] LABS: Urine Appearance CLEAR; Urine Color YELLOW
[2019-07-30 10:05] LABS: Urine Bilirubin NEGATIVE (NEG); Urine Blood NEGATIVE (NEG); Urine Glucose NEGATIVE (NEG); Urine Microscopic Reflex ORDER UMIC; Urine Protein 2+ (NEG); Urine Specific Gravity >1.030 (1.005-1.030); Urine Urobilinogen 0.2 mg/dL (0.2-1.0)
[2019-07-30] MEDS ORDERED: FENTANYL CITR 100 MCG/2 ML ONE ×2 (10:10→10:57)
[2019-07-30] MEDS ORDERED: MIDAZOLAM HCL 2 MG/2 ML INJ ONE ×3 (10:10→10:21)
--- NOTE | 2019-07-30 10:11 | CON ---
Identification: 54-year-old man. Chief Complaint: Chest pain. History Of Present Illness: Mr. Cummings has been having chest pain with exertion for several weeks. About 1 week ago, had a nuclear stress test that indicated ischemia, inferior wall. Cath was not done because he is normally a patient of Dr. Pritchard. He was discharged with plan to see Dr. Pritchard but that did not axle turner to happen. He has not had a heart cath since and I think Dr. Pritchard does not take his insurance. He has continued to take his medicines. When he exerts himself very much, he gets tightness in the chest. He has a history of stents in the left main and other arteries. A few years later, he underwent bypass surgery in 2013. This would be his first heart cath since the bypass surgery if we do a heart cath this admission. He has underlying history of vascular disease, COPD, hypertension, dyslipidemia, and diabetes. He is allergic to gabapentin. He has a chronic pain syndrome. One of our notes indicated he had aortic valve replacement, but we could not see that on echocardiographic imaging and I think that is an error. Physical Examination: General: He is alert, oriented, pleasant, 5 feet 9 inch, 217 pounds. Not in any distress. Vital Signs: Blood pressure 103/55. Lungs: Clear. Neck: Carotids no bruit. Heart: S4 gallop, otherwise normal. Abdomen: Soft. Extremities: Normal. Distal pulses are diminished. No cyanosis, clubbing, or edema. Laboratory Data: Troponins are normal. Creatinine 1.19, blood sugar 146. Assessment And Plan: I believe Mr. Cummings to have a heart catheterization most likely with stent. He agrees to do the cardiac cath later today. He understands the potential benefits, indications, risks, and agrees to proceed. UMA/JORGE L Voice ID: [id number] Report ID: [id number] ANTONIO
[2019-07-30 10:12] LABS: Urine Bacteria <20 /HPF (NONE SEEN); Urine Culture Reflex Order NOT NEEDED; Urine RBC <5 /HPF (NONE SEEN)
[2019-07-30] MEDS ORDERED: INSULIN GLARGINE 100 UNITS/ML SQ SCH (11:30)
--- NOTE | 2019-07-30 11:53 | P.DS ---
Admission Date: 07/29/19 Discharge Date: 07/30/19 Disposition: ROUTINE DISCHARGE Discharge Condition: GOOD Reason for Admission: chest Pain - Problems (1) Chest pain, rule out acute myocardial infarction Current Visit: No Status: Acute (2) Diabetes mellitus Current Visit: No Status: Acute (3) CAD (coronary artery disease) Current Visit: No Status: Chronic Qualifiers: Coronary Disease-Associated Artery/Lesion type: bypass graft (4) COPD (chronic obstructive pulmonary disease) Current Visit: No Status: Chronic Qualifiers: COPD type: chronic bronchitis (5) DM neuropathy, type II diabetes mellitus Current Visit: No Status: Chronic (6) Hyperlipidemia Current Visit: No Status: Chronic Brief History of Present Illness: 54 year old male with past medical history hypertension, hyperlipidemia, diabetes , anxiety, CAD physically been hospital for unstable angina and was discharged before getting a heart catheterization at patient's request came back to ER with chest pain started this afternoon. pain is located in retrosternal , pressure-like 6/10 severity with radiation to the back betwen Shoulder blades . As the pain was progressively worsening. He was brought to ER He was assessed in the ER and was found to have chest pain and possible unstable angina and was admitted for further management . Hospital Course: Patient was admitted and was monitored under telemetry. Trended cardiac enzymes and cardiology was consulted. In view of his previous stress test which was abnormal , cardiology recommended a left heart catheterization , which did not show any significant coronary occlusions. cardiology recommended starting him on Renexa and up titrating metoprolol to 100 mg p.o. b.i.d. he has been discharged home today in a stable condition with advice to follow up with PCP in 1 week and also with Cardiology in 1-2 weeks Vital Signs/Physical Exam: Temp Pulse Resp BP Pulse Ox 97.7 F 89 18 105/66 94 07/30/19 09:36 07/30/19 09:36 07/30/19 09:36 07/30/19 09:36 07/30/19 09:36 General: Alert, In no apparent distress HEENT: Atraumatic, Normocephalic Neck: Supple, 2+ carotid pulse no bruit Respiratory: Clear to auscultation bilaterally Cardiovascular: Normal pulses, Regular rate/rhythm Capillary refill: <2 Seconds Gastrointestinal: Soft and benign Musculoskeletal: No swelling Integumentary: No rashes Neurological: Normal strength at 5/5 x4 extr Laboratory Data at Discharge: WBC 9.6 K/uL (4.3-10.9) 07/30/19 05:09 Hgb 14.5 g/dL (13.6-17.9) 07/30/19 05:09 Hct 42.7 % (39.6-49.0) 07/30/19 05:09 Plt Count 166 K/uL (152-406) 07/30/19 05:09 PT 11.8 SECONDS (9.5-12.5) 07/29/19 17:15 INR 1.00 07/29/19 17:15 Sodium 141 mmol/L (136-145) 07/30/19 05:09 Potassium 3.7 mmol/L (3.5-5.1) 07/30/19 05:09 BUN 15 mg/dL (7-18) 07/30/19 05:09 Creatinine 1.19 mg/dL (0.55-1.3) 07/30/19 05:09 Glucose 146 mg/dL (74-106) H 07/30/19 05:09 Magnesium 2.1 mg/dL (1.8-2.4) 07/29/19 17:15 Total Bilirubin 1.0 mg/dL (0.2-1.0) 07/30/19 05:09 AST 11 U/L (15-37) L 07/30/19 05:09 ALT 25 U/L (12-78) 07/30/19 05:09 Alkaline Phosphatase 64 U/L (45-117) 07/30/19 05:09 Troponin I < 0.02 ng/mL (0.0-0.045) 07/30/19 00:34 Triglycerides 136 mg/dL (<150) 07/30/19 05:09 Cholesterol 170 mg/dL (<200) 07/30/19 05:09 HDL Cholesterol 39 mg/dL (40-60) L 07/30/19 05:09 Cholesterol/HDL Ratio 4.36 07/30/19 05:09 Lipase 95 U/L (73-393) 07/29/19 17:15 Home Medications: Albuterol Sulfate [Proventil Hfa] 2 puff IH Q6HP PRN 04/23/14 Aspirin [Low Dose Aspirin EC] 81 mg PO DAILY 04/23/14 Nitroglycerin [Nitrostat*] 1 tab SL PRN PRN 04/23/14 Clopidogrel Bisulfate [Plavix*] 1 tab PO DAILY 07/21/19 Insulin Glargine,Hum.rec.anlog [Toujeo Solostar] 30 units SQ SEECOM 07/21/19 Umeclidinium Brm/Vilanterol Tr [Anoro Ellipta 62.5-25 Mcg INH] 1 puff IH DAILY 07/21/19 clonazePAM [Klonopin*] 0.25 mg PO BID 07/21/19 Atorvastatin Calcium [Lipitor] 40 mg PO DAILY 07/29/19 Liraglutide [Victoza 2-Rojas] 0.6 mg SQ DAILY 07/29/19 Metoprolol Tartrate [Lopressor*] 100 mg PO BID #60 tab 07/30/19 Ranolazine [Ranexa] 1,000 mg PO BID #60 tab.er.12h 07/30/19 New Medications: Metoprolol Tartrate [Lopressor*] 100 mg PO BID #60 tab Ranolazine [Ranexa] 1,000 mg PO BID #60 tab.er.12h Diet: ADA Activity: Ad luis Followup: Fito Zapata MD [ACTIVE - CAN ADMIT] - Time spent managing pt's care (in minutes): 39
[2019-07-30] MEDS: INSULIN -REGULAR HUMAN 50 UNIT/0.5 ML ML SQ SCH ×2 (13:06→16:30)
[2019-07-30 13:16] VITALS: O2SAT 93
[2019-07-30 13:20] LABS: CKMB Creatine Kinase MB < 1.0 ng/mL (0.3-3.6); Creatine Phosphokinase 53 U/L (39-308)
[2019-07-30 14:47] VITALS: BP 102/58; TEMP 97.9
--- NOTE | 2019-07-30 15:09 | EKG ---
Test Date: 2019-07-30 Test Time: 07:33:38 Sweat Box Attendant: DEBBIE MEASUREMENT RESULTS: Intervals: Rate: 82 KS: 156 QRSD: 104 QT: 406 QTc: 474 [place]: P: 42 KS: 156 QRS: -47 T: 27 INTERPRETIVE STATEMENTS: Normal sinus rhythm Left axis Nonspecific T wave abnormality Abnormal ECG Compared to ECG 07/29/2019 17:22:07 Sinus tachycardia no longer present Atrial abnormality no longer present Electronically Signed On 07-30-19 15:08:29 BEAD FILLER by Fito Zapata
--- NOTE | 2019-07-30 15:41 | OP ---
Surgeon: Fito Zapata MD Substance Abuse Prevention Coordinator: Michelle Bravo. Identification: Mr. Cummings is 54. Procedure: Left heart catheterization, coronary angiography, left ventricular angiography, saphenous vein angiography, and left internal mammary artery graft angiography. Procedure Findings: The patient's ejection fraction and wall motion are normal. Left ventricular en d-diastolic pressure mildly elevated at 18. He is a patient with 3-vessel coronary heart disease and previous bypass graft. His left main has a 40% to 50% ostial stenosis. It gives rise to a very sma ll circumflex and diagonal branches. None of them are amenable to angioplasty. The circumflex is ab out a 2 mm vessel without any significant stenosis. The LAD is totally occluded. His right coronary artery is diffusely diseased including right before the posterior descending and has a 99% stenosis. The saphenous vein graft to the right is widely patent. The saphenous vein graft stump was found p resumably and went to an obtuse marginal or circumflex branch. There is no flow in it. It is a flus h occlusion. The left internal mammary artery is widely patent and gives excellent blood flow. It i s implanted and connects to the mid LAD. There is normal flow to the LAD. Impression is that we rosi uld try medical therapy before we do anything else. I strongly suspect the patient is seeking narcot ic therapy with his complaint of chest pain. Procedure In Detail: The patient was brought to the cardiac phlebotomy lab assistant in a fasting state, sedated wit h Versed and fentanyl. Prepared and draped in usual sterile fashion. Right femoral approach was use d. The artery was entered using an 18-gauge needle, cannulated with a short J-wire and 4-Telugu rhodes th was used for the entire chest. We used a JL4 to angiogram left coronary, left main. A JR4 to ang iogram the right coronary and the saphenous vein graft stump and also the left internal mammary arter y. We used a pigtail catheter to angiogram left ventricle. At the end of the procedure, catheters w ere withdrawn over a wire and we angiogramed the right femoral artery using the sheath. Adequate [place] was found and we closed the arteriotomy using an Angio-Seal device. Complications From The Procedure: None. Estimated Blood Loss: 10 cc. UMA/JORGE L Voice ID: [id number] Report ID: [id number]
[2019-07-30] MEDS ORDERED: METOPROLOL TAR 50 MG TAB PO SCH (21:00)
== END 2019-07-30 18:01 | disposition home or self-care (01) ==
LOC: ER 17:03 → ERHOLD 18:19 → INTOOBSV 18:19 → 4TH 20:01
PROVIDERS: ADMIT Family Medicine; ATTEND Family Medicine
PROC: 4A023N7 Measurement of Cardiac Sampling and Pressure, Left Heart, Percutaneous Approach (ICD-10-PCS; principal; 2019-07-30)
PROC: B212YZZ Fluoroscopy of Single Coronary Artery Bypass Graft using Other Contrast (ICD-10-PCS; 2019-07-30)
PROC: B218YZZ Fluoroscopy of Left Internal Mammary Bypass Graft using Other Contrast (ICD-10-PCS; 2019-07-30)
DX: I20.0 Unstable angina (principal); I10 Essential (primary) hypertension; E78.5 Hyperlipidemia, unspecified; F41.9 Anxiety disorder, unspecified; I25.10 Atherosclerotic heart disease of native coronary artery without angina pectoris; E11.40 Type 2 diabetes mellitus with diabetic neuropathy, unspecified; J42 Unspecified chronic bronchitis
CPT/HCPCS: 93005 ×2; 85025 ×2; 80048; 36415; 83735; 82550 ×3; 85610; 80061; 82947 ×2; 80076; 81003; 84484 ×3; 82553 ×3; 83690; 80053; 83880; 71045; 93459 ×2; 94760 ×3; 96375; 96372; 96374; 99285; C1893; C1760; J1940; J2250 ×3; J3010 ×2; J1650; J2270 ×3; J1815; G0378 ×4; J7040; J7030; J2405; 81015; J0583

== ENCOUNTER 2020-01-30 13:38 | Emergency (ER) | payer OTHER ==
[2020-01-30 14:15] LABS: Absolute Lymphocytes (CBC) 2.1 K/uL (0.7-4.9); Basophils % 1.3 % (0-1.3); Hematocrit 42.1 % (39.6-49.0); Lymphocytes % 29.4 % (15.3-44.8); MPV 8.4 fL (7.6-11.3); Protime INR 0.95; RBC Red Blood Cell Count 4.95 M/uL (4.33-5.43)
[2020-01-30 14:33] LABS: ALT/SGPT 19 U/L (12-78); AST/SGOT 11 U/L (15-37); Albumin 3.4 g/dL (3.4-5.0); Alkaline Phosphatase 50 U/L (45-117); BUN Blood Urea Nitrogen 23 mg/dL (7-18); Bicarbonate 24 mmol/L (21-32); Bilirubin Direct 0.1 mg/dL (0-0.2); Bilirubin Total 0.6 mg/dL (0.2-1.0); Glucose Level 286 mg/dL (74-106); Magnesium 2.1 mg/dL (1.8-2.4); NT PRO-BNP 366 pg/mL (<125); Potassium 3.9 mmol/L (3.5-5.1); Protein, Total 6.8 g/dL (6.4-8.2); Sodium Level 138 mmol/L (136-145); Troponin (Emerg Dept Use Only) < 0.02 ng/mL (0.0-0.045)
[2020-01-30] MEDS ORDERED: MORPHINE 4 MG/ML SYR ONE (14:34)
[2020-01-30] MEDS ORDERED: ONDANSETRON 4 MG/2 ML VIAL ONE (14:34)
--- NOTE | 2020-01-30 14:35 | RAD REPORT ---
EXAM DESCRIPTION: Felix Single View01/30/2020 2:16 pm CLINICAL HISTORY: Chest pain COMPARISON: 2019 FINDINGS: The lungs appear clear of acute infiltrate. The heart is normal size. Postsurgical change s involve chest Upper lobe vessels are prominent indicative pulmonary venous hypertension
--- OUTSIDE RECORDS SUMMARY | 2020-01-30 14:51 | XMS REPORT ---
:1965 Author Organization [employer] Care Team Providers Name Role Phone Michael Refugio Provider Role Unavailable Allergies No Known Allergies Problems Problem Type Condition Code Onset Dates Condition Statu s Problem Mixed hyperlipidemia E78.2 Active Problem Chronic pain syndrome G89.4 Active Problem Stented coronary artery Z95.5 Acti ve Problem GERD without esophagitis K21.9 Act paul Problem Type 2 diabetes mellitus with E11.42 Active diabetic polyneuropathy Problem Unstable angina I20.0 Active Problem Panic disorder [episodic paroxysmal F41.0 Active anxiety] Problem Generalized anxiety disorder F41.1 Active Problem Type 2 diabetes mellitus with other E11.69 Active specified complication 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 Problem Congestive heart failure, I50.9 Ac tive unspecified HF chronicity, unspecified heart failure type Problem Coronary artery disease involving I25.810 Active coronary bypass graft of [place] heart, angina presence unspecified Problem Chronic obstructive pulmonary J44.9 Active disease, unspecified COPD type Problem HTN, goal below 130/80 I10 Activ e Problem History of CT (myocardial I25.2 Ac tive infarction) Medications Medication Code Code Instructions Start End Date Status Dosage System Date [facility]35 9-4.8 MCG/ACT Nov 06December 05, Active 2 pu ffs Aerosphere Inhalation Twice 2019 2019 a day Results No Known Results Summary Purpose eClinicalWorks Submission
--- OUTSIDE RECORDS SUMMARY | 2020-01-30 14:51 | XMS REPORT ---
:1965 Author Organization [employer] Care Team Providers Name Role Phone Refugio Rodriguez Provider Role Unavailable Allergies, Adverse Reactions, Alerts Substance Reaction Event Type N.K.D.A. Info Not Available Non Drug Allergy Problems Problem Type Condition Code Onset Dates Condition Statu s Assessment Umbilical hernia without K42.9 Act paul obstruction and without gangrene Assessment GERD without esophagitis K21.9 Act paul Assessment Non-compliant behavior R46.89 Activ e Assessment Proteinuria, unspecified type R80.9 Active Assessment Congestive heart failure, I50.9 Ac tive unspecified HF chronicity, unspecified heart failure type Assessment Stented coronary artery Z95.5 Acti ve Assessment [facility] (current) use of insulin Z79.4 Active Assessment History of [place] (myocardial I25.2 Ac tive infarction) Assessment Chronic pain syndrome G89.4 Active Problem Chronic obstructive pulmonary J44.9 Active disease, unspecified COPD type Assessment Renal insufficiency N28.9 Active Problem History of [place] (myocardial I25.2 Ac tive infarction) Assessment Chronic obstructive pulmonary J44.9 Active disease, unspecified COPD type Problem Mixed hyperlipidemia E78.2 Active Problem Chronic pain syndrome G89.4 Active Problem Stented coronary artery Z95.5 Acti ve Problem GERD without esophagitis K21.9 Act paul Problem Type 2 diabetes mellitus with E11.42 Active diabetic polyneuropathy Assessment Mixed hyperlipidemia E78.2 Active Assessment Unstable angina I20.0 Active Problem Unstable angina I20.0 Active Assessment Generalized anxiety disorder F41.1 Active Problem Panic disorder [episodic paroxysmal F41.0 Active anxiety] Problem Generalized anxiety disorder F41.1 Active Problem Type 2 diabetes mellitus with other E11.69 Active specified complication Problem [facility] (current) use of insulin Z79.4 Active Assessment Type 2 diabetes mellitus with E11.42 Active diabetic polyneuropathy Assessment Type 2 diabetes mellitus with other E11.69 Active specified complication Assessment Panic disorder [episodic paroxysmal F41.0 Active anxiety] Assessment HTN, goal below 130/80 I10 Activ e Assessment Coronary artery disease involving I25.810 Active coronary bypass graft of [place] heart, angina presence unspecified Problem Congestive heart failure, I50.9 Ac tive unspecified HF chronicity, unspecified heart failure type Problem Coronary artery disease involving I25.810 Active coronary bypass graft of [place] heart, angina presence unspecified Problem HTN, goal below 130/80 I10 Activ e Medications Medication Code Code Instructions Start End Status Dosage System Date Date Losartan [facility] 52779062258 50 MG Orally Active 1 tabl et Potassium Once a day Metoprolol [facility] 52494978330 100 MG Orally Active 1 t ablet with Tartrate Twice a day food Omeprazole ND 04016929785 40 MG Orally Active 1 ca psule 30 Once a day minutes befor e morning meal Simvastatin ND 47876404675 20 MG Orally Active 1 t ablet in the Once a day evening Benzonatate ND 75433900646 200 MG Orally Oct 15, Oct Active 1 capsule Three times a [address] [facility] 48722671145 62.5-25 MCG/INH Active 1 puff Inhalation Once a day Victoza [facility] 06174959896 18 MG/3ML Active 0.6mg once Subcutaneous daily x 1wk , once a day then 1.2mg on ce daily x1wk, then may increase to 1.8mg once daily Toujeo Max [facility] 50612798063 300 UNIT/ML Active injec t 50 units SoloStar Subcutaneous BID Aspir-Low [facility] 49848953954 81 MG Orally Active 1 tab let Once a day Ranexa [facility] 86910149968 1000 MG Orally Inactive 1 ta blet Twice a day BD Pen Needle [facility] 72131856831 31G X 5 MM Jul 25, Active 1 n eedle with Mini U/F subcutaneously 2018 Victoza once a day Clonazepam [facility] 47297615128 0.25 MG Orally Active 1 tablet BID PRN PANIC ATTACKS Victoza [facility] 78019723967 18 MG/3ML Active INJECT 0.6 MG SUBCUTANEOUSLY DAILY X7 DAYS, 1.2MG DAILY X7D DAYS, THEN MAY INCREASE TO 1.8MG DAILY ProAir HFA [facility] 42378129811 108 (90 Base) Active 2 p uffs as MCG/ACT needed Inhalation every [address] [facility] 94263165318 75 MG Orally Active 1 table t Once a day Results No Known Results Summary Purpose eClinicalWorks Submission
--- OUTSIDE RECORDS SUMMARY | 2020-01-30 14:51 | XMS REPORT ---
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.4 Active Assessment History of [place] (myocardial I25.2 Ac tive infarction) Assessment Chronic pain syndrome G89.4 Active Problem Chronic obstructive pulmonary J44.9 Active disease, unspecified COPD type Assessment Renal insufficiency N28.9 Active Problem History of [place] (myocardial I25.2 Ac tive infarction) Assessment Chronic [...] with other E11.69 Active specified complication Problem [facility] (current) use of insulin Z79.4 Active Assessment Type 2 diabetes mellitus with E11.42 Active diabetic polyneuropathy Assessment Panic disorder [episodic paroxysmal F41.0 Active anxiety] Assessment HTN, goal below 130/80 I10 Activ e Assessment Coronary artery disease involving I25.810 Active coronary bypass graft of [place] heart, angina presence unspecified Problem Congestive heart failure, I50.9 Ac tive unspecified HF chronicity, unspecified heart failure type Problem Coronary artery disease involving I25.810 Active coronary bypass graft of [place] heart, angina presence unspecified Problem HTN, goal below 130/80 I10 Activ e Medications Medication Code Code Instructions Start End Status Dosage System Date Date Clonazepam [facility] 38551310023 0.25 MG Orally Active 1 tablet BID PRN PANIC ATTACKS Anoro Ellipta [facility] 99261627556 62.5-25 MCG/INH Active INHALE 1 PUFF DAILY Anoro Ellipta [facility] 17647423293 62.5-25 MCG/INH Active 1 puff Inhalation Once a day Toujeo Max [facility] 05713110667 300 UNIT/ML Active injec t 50 SoloStar Subcutaneous BID units Simvastatin [facility] 10649509530 20 MG Orally Once Active 1 tablet a day in the evening Ranexa [facility] 59899364772 1000 MG Orally Inactive 1 ta blet Twice a day Aspir-Low [facility] 33730170173 81 MG Orally Once Active 1 tablet a day Metoprolol [facility] 04209617020 100 MG Orally Active 1 t ablet Tartrate Twice a day with food Losartan [facility] 94728111165 50 MG Orally Once Active 1 tablet Potassium a day ProAir HFA [facility] 64472737688 108 (90 Base) Active 2 p uffs as MCG/ACT needed Inhalation every 6 hrs Victoza [facility] 92475555521 18 MG/3ML Active 0.6mg once Subcutaneous once daily x a day 1wk, then 1.2mg once daily x1wk, then may increase to 1.8mg once daily Omeprazole [facility] 17292755500 40 MG Orally Once Active 1 capsule a day 30 minutes before morning meal Plavix [facility] 89564922402 75 MG Orally Once Active 1 tablet a day BD Pen Needle [facility] 53585496177 31G X 5 MM Jul 25, Active 1 n eedle Mini U/F subcutaneously 2018 with once a day Victoza Results No Known Results Summary Purpose eClinicalWorks Submission
--- OUTSIDE RECORDS SUMMARY | 2020-01-30 14:51 | XMS REPORT ---
:1965 Author Organization [facility] Address [address] [place] [address] Care Team Providers Name Role Phone Unavailable Unavailable Unavailable Problems Condition Condition Condition Status Onset Resolution Last Treating Co mments Source Name Details Category Date Date Treatment Clinician Date Mixed Mixed Problem Active [facility] hyperlipid hyperlipid Missy kes - emia emia [facility] Chronic Chronic Problem Active [facility] pain pain [facility] - syndrome syndrome Memori a l [facility] Stented Stented Problem Active [facility] coronary coronary [facility] - artery artery Memoria l [facility] GERD GERD Problem Active [facility] without without [facility] - esophagiti esophagiti Me moria s s l [facility] Type 2 Type [address] [facility] diabetes diabetes [facility] - mellitus mellitus Memori a with with l diabetic diabetic Outpat i polyneurop polyneurop en t athy athy Clinics Unstable Unstable Problem [facility] angina angina [facility] - Memoria l [facility] Clinics Panic Panic Problem Active [facility] disorder disorder [facility] - [episodic [episodic Jay vladimir paroxysmal paroxysmal l anxiety] anxiety] Outpat i ent Clinics Generalize Generalize Problem Active [facility] d anxiety d anxiety Luke s - disorder disorder Memori a l [facility] Type 2 Type [address] [facility] diabetes diabetes [facility] - mellitus mellitus Memori a with other with other l specified specified Outp ati complicati complicati en t on on Clinics terminal carman terminal carman Problem Active [facility] (current) (current) Luke s - use of use of Memoria insulin insulin l Outpati ent Clinics Congestive Congestive Problem Active [facility] heart heart [facility] - failure, failure, Memori a unspecifie unspecifie l d HF d HF Outpati chronicity chronicity en t , , Clinics unspecifie unspecifie d heart d heart failure failure type type Coronary Coronary Problem Active [facility] artery artery [facility] - disease disease Memoria involving involving l coronary coronary Outpat i bypass bypass ent graft of graft of Clinic s [place] heart, heart, angina angina presence presence unspecifie unspecifie d d Chronic Chronic Problem Active [facility] obstructiv obstructiv Missy kes - e e [facility] pulmonary pulmonary l disease, disease, Outpat i unspecifie unspecifie en t d COPD d COPD Clinics type type HTN, goal HTN, goal Problem Active [facility] below below [facility] - 130/80 130/80 Memoria l Outpati ent Clinics History of History of Problem Active [facility] [place] [facility] - (myocardia (myocardia Me moria l l l infarction infarction Ou tpati ) ) ent Clinics Allergies, Adverse Reactions, Alerts This patient has no known allergies or adverse reactions. Medications Ordered Filled Start Stop Current Ordering Indication Dosage Frequency Signature Comments Components Source Medication Medication Date Date Medication? Clinician (SIG) Name Name Albuterol Albuterol Yes Refugio [address] [facility] Sulfate Sulfate 12-19 Rodriguez needed [facility] - 00:00: Memoria 00 l [facility] Bevespi Bevespi 2019- Yes Refugio [address] Aerosphere Aerosphere 11-06 Rodriguez L ukes - 00:00: 00:00 Memoria 00 :00 l [facility] Procedures This patient has no known procedures. Encounters Start End Encounter Admission Attending Care Care Encounter Source Date/Time Date/Time Type Type Clinicians Facility Department ID 2019-12-20 2019-12-20 Outpatient Mariela Sierrat [id number] [facility] [address] 11:11:00 11:11:00 t [facility] Medicine Medicine [facility] 2019-11-16 2019-11-16 [facility] [id number] 16:01:00 16:01:00 t [facility] Medicine Medicine [facility] 2019-11-12 2019-11-12 [facility] [id number] [facility] 09:30:00 09:30:00 t [facility] Medicine Medicine [facility] 2019-11-06 2019-11-06 [facility] [id number] 11:02:00 11:02:00 [email or web address] [facility] Medicine Outpati ent Clinics 2019-11-06 2019-11-06 [facility] [id number] 11:00:00 11:00:00 t [facility] Medicine Outpati ent Clinics 2019-10-15 2019-10-15 [facility] [id number] [facility] 08:30:00 08:30:00 t [employer] Medicine Outpati ent Clinics 2019-09-28 2019-09-28 [facility] [id number] [address] 08:07:00 08:07:00 t [facility] Medicine Outpati ent Clinics 2019-09-13 2019-09-13 [facility] [id number] [address] 08:00:00 08:00:00 t [facility] Medicine Outpati ent Clinics 2019-08-23 2019-08-23 [facility] [id number] 10:10:00 10:10:00 t [employer] Medicine Outpati ent Clinics Results This patient has no known results.
--- OUTSIDE RECORDS SUMMARY | 2020-01-30 14:51 | XMS REPORT ---
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
--- OUTSIDE RECORDS SUMMARY | 2020-01-30 14:51 | XMS REPORT ---
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
--- OUTSIDE RECORDS SUMMARY | 2020-01-30 14:52 | XMS REPORT ---
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 Z79.4 Active Problem Congestive heart failure, I50.9 Ac tive unspecified HF chronicity, unspecified heart failure type Problem Coronary artery disease involving I25.810 Active coronary bypass graft of [place] heart, angina presence unspecified Problem Chronic obstructive pulmonary J44.9 Active disease, unspecified COPD type Problem HTN, goal below 130/80 I10 Activ e Problem History of [place] (myocardial I25.2 Ac tive infarction) Medications Medication Code Code Instructions Start End Date Status Dosage System Date Bevespi ND 60954873998 9-4.8 MCG/ACT Nov 06November Inactive 2 puf fs Aerosphere Inhalation 2019 Twice a day Albuterol [facility] 54667767880 (2.5 MG/3ML) December Active 3 ml as Sulfate 0.083% 2019 needed Inhalation every 8 hrs PRN Wheezing, Couhg or Shortness of Breath Results No Known Results Summary Purpose eClinicalWorks Submission
--- OUTSIDE RECORDS SUMMARY | 2020-01-30 14:52 | XMS REPORT ---
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 70873486320 75 MG Orally Active 1 table t Once a day Victoza [facility] 71986269683 18 MG/3ML Active INJECT 0.6 MG SUBCUTANEOUSLY DAILY X7 DAYS, 1.2MG DAILY X7D DAYS, THEN MAY INCREASE TO 1.8MG DAILY Losartan [facility] 97334209766 50 MG Active TAKE 1 TABL ET Potassium BY MOUTH EVERY DAY Clonazepam [facility] 94321335117 0.25 MG Orally Active 1 tablet BID PRN PANIC ATTACKS Anoro Ellipta [facility] 39239202008 62.5-25 MCG/INH Active 1 puff Inhalation Once a day Aspir-Low [facility] 40286664925 81 MG Orally Active 1 tab let Once a day Simvastatin [facility] 75972586239 20 MG Orally Active 1 t ablet in the Once a day evening ProAir HFA [facility] [address]-34 108 (90 Base) Active I NHALE 2 PUFFS MCG/ACT BY MOUTH EVERY 6 HOURS NEEDED Omeprazole [facility] 05908948224 40 MG Active TAKE 1 CA PSULE BY MOUTH EVERY MORNING 30 MINUTES BEFORE MORNING MEAL Toujeo Max [facility] 57662169506 300 UNIT/ML Active injec t 50 units SoloStar Subcutaneous BID Victoza [facility] 11185571212 18 MG/3ML Active 0.6mg once Subcutaneous daily x 1wk , once a day then 1.2mg on ce daily x1wk, then may increase to 1.8mg once daily Metoprolol [facility] 90637462107 100 MG Orally Active 1 t ablet with Tartrate Twice a day food ProAir HFA [facility] 33035474976 108 (90 Base) Active 2 p uffs as MCG/ACT needed Inhalation every 6 hrs BD Pen Needle [facility] 41052760141 31G X 5 MM Jul 25, Active 1 n eedle with Mini U/F subcutaneously 2019 Victoza once a day Results No Known Results Summary Purpose eClinicalWorks Submission
--- OUTSIDE RECORDS SUMMARY | 2020-01-30 14:52 | XMS REPORT ---
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 Assessment Type 2 diabetes mellitus with other E11.69 Active specified complication Assessment Panic disorder [episodic paroxysmal F41.0 Active anxiety] Assessment HTN, goal below 130/80 I10 Activ e Assessment Coronary artery disease involving I25.810 Active coronary bypass graft of [place] heart, angina presence unspecified Problem Congestive heart failure, I50.9 Ac tive unspecified HF chronicity, unspecified heart failure type Problem Coronary artery disease involving I25.810 Active coronary bypass graft of [place] heart, angina presence unspecified Problem HTN, goal below 130/80 I10 Activ e Medications Medication Code Code Instructions Start End Status Dosage System Date Date Aspir-Low [facility] 32492769172 81 MG Orally Once Active 1 tablet a day Ranexa [facility] 38089041704 1000 MG Orally Inactive 1 ta blet Twice a day Omeprazole [facility] 02021277728 40 MG Orally Once Active 1 capsule a day 30 minutes before morning meal Losartan [facility] 41775765803 50 MG Active TAKE 1 Potassium TABLET BY MOUTH EVERY DAY ProAir HFA [facility] 19872221367 108 (90 Base) Active 2 p uffs as MCG/ACT needed Inhalation every 6 hrs Anoro Ellipta [facility] 59119955375 62.5-25 MCG/INH Active 1 puff Inhalation Once a day Omeprazole [facility] 38037667863 40 MG Active TAKE 1 CAPSULE BY MOUTH EVERY MORNING 30 MINUTES BEFORE MORNING MEAL Bevespi [facility] 36990667264 9-4.8 MCG/ACT Nov 06November Active 2 puff s Aerosphere Inhalation Twice 2019 Victoza [facility] 35064587096 18 MG/3ML Active 0.6mg once Subcutaneous once daily x a day 1wk, then 1.2mg once daily x1wk, then may increase to 1.8mg once daily Plavix [facility] 63968975764 75 MG Orally Once Active 1 tablet a day Simvastatin [facility] 91686872526 20 MG Orally Once Active 1 tablet a day in the evening Clonazepam [facility] 70368292544 0.25 MG Orally Active 1 tablet BID PRN PANIC ATTACKS BD Pen Needle [facility] 03167009449 31G X 5 MM Jul 25, Active 1 n eedle Mini U/F subcutaneously 2018 with once a day Victoza Metoprolol ND 46141806218 100 MG Orally Active 1 t ablet Tartrate Twice a day with food Losartan ND 70534692412 50 MG Orally Once Active 1 tablet Potassium a day Toujeo Max [facility] 65412507477 300 UNIT/ML Active injec t 50 SoloStar Subcutaneous BID units Simvastatin [facility] 60134041157 20 MG Active TAKE 1 TABLET BY MOUTH EVERY DAY IN THE EVENING Results No Known Results Summary Purpose eClinicalWorks Submission
--- OUTSIDE RECORDS SUMMARY | 2020-01-30 14:52 | XMS REPORT ---
[...] [facility] (current) use of insulin Z79.4 Active Problem Congestive heart failure, I50.9 Ac tive unspecified HF chronicity, unspecified heart failure type Problem Coronary artery disease involving I25.810 Active coronary bypass graft of [place] heart, angina presence unspecified Problem Chronic obstructive pulmonary J44.9 Active disease, unspecified COPD type Problem HTN, goal below 130/80 I10 Activ e Problem History of [place] (myocardial I25.2 Ac tive infarction) Medications No Known Medications Results No Known Results Summary Purpose eClinicalWorks Submission
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
--- NOTE | 2020-01-30 17:16 | ER ---
Nurse's Notes [facility] Name: Ran Cummings Age: 54 yrs Sex: Male : 1965 Arrival Date: 01/30/2020 Time: 13:39 Bed 8 Private MD: Diagnosis: Chest pain, unspecified;Anxiety disorder, unspecified Presentation: 01/29 13:40 Chief complaint: Patient states: Chest pain radiates to the back and left arm, started jl7 at 1300, pt took 1 nitro and 162 mg Aspirin prior to EMS arrival. Coronavirus screen: Proceed with normal triage. Patient denies a cough. Patient denies shortness of breath or difficulty breathing. Patient denies measured and/or subjective temperature greater than 100.4F prior to today's visit. Patient denies travel on a cruise ship or to a country the [facility] currently lists as an affected area. Patient denies contact with known and/or suspected case of COVID-19. Ebola Screen: No symptoms or risks identified at this time. Initial Sepsis Screen: Does the patient meet any 2 criteria? No. Patient's initial sepsis screen is negative. Does the patient have a suspected source of infection? No. Patient's initial sepsis screen is negative. Risk Assessment: Do you want to hurt yourself or someone else? Patient reports no desire to harm self or others. Onset of symptoms was January 30, 2020 at 13:00. 13:40 Method Of Arrival: EMS: [place] [id number] 13:40 Acuity: DASHA 2 jl7 Historical: - Allergies: 13:48 GABAPENTIN; jl7 - PMHx: 13:48 Diabetes - NIDDM; Hypertension; Myocardial infarction; COPD; jl7 - PSHx: 13:48 CABG; jl7 - Immunization history:: Adult Immunizations unknown. - Social history:: Smoking status: Patient denies any tobacco usage or history of. Screenin:00 Abuse screen: Denies threats or abuse. Denies injuries from another. Nutritional jl7 screening: No deficits noted. Tuberculosis screening: No symptoms or risk factors identified. Fall Risk IV access (20 points). Total Diehl Fall Scale indicates No Risk (0-24 pts). Assessment: 13:45 General: Appears in no apparent distress. uncomfortable, Behavior is cooperative. Pain: jl7 Complains of pain in chest Pain radiates to left arm Pain currently is 7 out of 10 on a pain scale. Quality of pain is described as burning, sharp, Pain began 30 min ago. Neuro: Level of Consciousness is awake, alert, obeys commands, Oriented to person, place, time, situation. Cardiovascular: Heart tones S1 S2 present Patient's skin is warm and dry. Respiratory: Airway is patent Respiratory effort is even, unlabored, Respiratory pattern is regular, symmetrical. Derm: Skin is. 14:45 Reassessment: Patient appears in no apparent distress at this time. Patient and/or jl7 family updated on plan of care and expected duration. Pain level reassessed. Patient is alert, oriented x 3, equal unlabored respirations, skin warm/dry/pink. 15:45 Reassessment: Patient appears in no apparent distress at this time. No changes from 7 previously documented assessment. Patient and/or family updated on plan of care and expected duration. Pain level reassessed. Patient is alert, oriented x 3, equal unlabored respirations, skin warm/dry/pink. 16:45 Reassessment: Patient appears in no apparent distress at this time. No changes from jl7 previously documented assessment. Patient and/or family updated on plan of care and expected duration. Pain level reassessed. Patient is alert, oriented x 3, equal unlabored respirations, skin warm/dry/pink. 18:15 Reassessment: Dr. Harman at bedside discussing results and POC with Pt. jl7 Vital Signs: 13:48 BP 140 / 90; Pulse 82; Resp 19 S; Pulse Ox 98% on R/A; jl7 14:00 BP 132 / 78; Pulse 82; Resp 16; Pulse Ox 98% ; jl7 15:00 BP 128 / 67; Pulse 84; Resp 16 S; Pulse Ox 98% on R/A; jl7 16:00 BP 122 / 85; Pulse 78; Resp 16; Pulse Ox 96% ; jl7 17:00 BP 106 / 65; Pulse 69; Resp 16; Pulse Ox 96% ; jl7 18:00 BP 135 / 83; Pulse 75; Resp 16; Pulse Ox 97% ; jl7 ED Course: 13:39 Patient arrived in ED. jl7 13:46 Triage completed. jl7 13:47 Jian Pereira RN is Primary Nurse. jl7 13:48 Ashkan Harman MD is Attending Physician. kdr 13:48 Arm band placed on right wrist. jl7 13:55 EKG done, by ED staff, reviewed by Ashkan Harman MD. 3 14:00 Patient has correct armband on for positive identification. Placed in gown. Bed in low jl7 position. Call light in reach. Side rails up X 1. residential monitor on. Pulse ox on. NIBP on. 14:00 Initial lab(s) drawn, by ne, sent to lab. Inserted saline lock: 20 gauge in right hand, 3 using aseptic technique. Blood collected. 14:16 XRAY Chest (1 view) In Process Unspecified. EDMS 18:33 No provider procedures requiring assistance completed. IV discontinued, intact, jl7 bleeding controlled, No redness/swelling at site. Pressure dressing applied. Patient maintains SpO2 saturation greater than 95% on room air. Administered Medications: 14:30 Drug: Zofran (Ondansetron) 4 mg Route: IVP; Site: right antecubital; ph 16:34 Follow up: Response: No adverse reaction jl7 14:32 Drug: morphine 4 mg Route: IVP; Site: right antecubital; ph 15:00 Follow up: Response: No adverse reaction; Pain is decreased jl7 18:15 Drug: Jasper (7.5 mg-325 mg) 1 tabs Route: PO; jl7 18:32 Follow up: Response: Medication administered at discharge. jl7 Outcome: 17:15 Discharge ordered by . kdr 18:33 Discharged to home ambulatory. jl7 18:33 Condition: stable 18:33 Discharge instructions given to patient, Instructed on discharge instructions, follow up and referral plans. Demonstrated understanding of instructions, follow-up care. 18:34 Patient left the ED. jl7 Signatures: Dispatcher [employer] EDRI Ashkan Harman MD MD kdr Chiara Leyva RN RN Jian Pereira RN RN 7 Cristin Walker [facility]: (The following items were deleted from the chart) 18:32 11:50 Jasper (7.5 mg-325 mg) 1 tabs PO jl7 jl7
[2020-01-30] MEDS ORDERED: HYDROCODONE/APAP 7.5/325 MG TAB ONE (18:22)
[2020-01-30 18:44] VITALS: BP 135/83; O2SAT 97
--- NOTE | 2020-01-31 06:31 | EKG ---
Test Date: 2020-01-30 Test Time: 13:50:56 Pet Care Attendant: JEEVAN MEASUREMENT RESULTS: Intervals: Rate: 79 GA: 150 QRSD: 96 QT: 394 QTc: 451 [place]: P: 33 GA: 150 QRS: -41 T: 47 INTERPRETIVE STATEMENTS: Normal sinus rhythm Left axis deviation Nonspecific ST and T wave abnormality Abnormal ECG Compared to ECG 07/30/2019 07:33:38 Left-axis deviation now present ST (T wave) deviation now present T-wave abnormality no longer present Electronically Signed On 01-31-20 06:30:14 CDT by Davion Trejo
== END 2020-01-30 18:34 | disposition home or self-care (01) ==
LOC: ER 13:38
DX: F41.9 Anxiety disorder, unspecified (principal); I10 Essential (primary) hypertension; Z95.1 Presence of aortocoronary bypass graft; Z88.8 Allergy status to other drugs, medicaments and biological substances
CPT/HCPCS: 93005; 85025; 80048; 36415; 83735; 85610; 80076; 84484 ×2; 83880; 71045; 96375; 96374; 99285; J2405